=== PATIENT | female | born 1990 ===

== ENCOUNTER 2022-09-18 08:16 | Outpatient (REF) | payer OTHER, SELFPAY ==
--- NOTE | ~2022-09-18 | XR_ITS ---
EXAMINATION: XR STERNUM CLINICAL INFORMATION: Chest pain. COMPARISON: Dedicated chest radiograph from today. TECHNIQUE: 2 views of the sternum were obtained. FINDINGS: There are no fractures. No bone, joint or soft tissue abnormality is demonstrated. XR/XR sternum min 2V IMPRESSION: Unremarkable sternum.
--- NOTE | ~2022-09-18 | XR_ITS ---
EXAMINATION: XR CHEST CLINICAL INFORMATION: Chest pain. COMPARISON: None available. TECHNIQUE: 2 views of the chest were obtained. FINDINGS: The lungs are clear. There are no pleural effusions. The heart and mediastinal structures are unremarkable. Mild thoracolumbar scoliosis. XR/XR chest 2V IMPRESSION: No acute cardiopulmonary process.
== END 2022-09-18 08:17 | disposition home or self-care (01) ==
LOC: HO.HMGCX 08:16
PROVIDERS: Visit Provider Internal Medicine
DX: R07.9 Chest pain, unspecified (principal)
CPT/HCPCS: 71046; 71120

== ENCOUNTER → 2023-01-30 10:17 | Outpatient (BNVA) | payer OTHER, SELFPAY | PROVIDERS: Visit Provider Physician Assistant Surgical ==

== ENCOUNTER 2023-02-27 10:36 | Outpatient (AMB) | payer OTHER, SELFPAY ==
[2023-02-27 10:46] VITALS: BP 131/64; PULSE 90; TEMP 36.5; O2SAT 96; BMI 42.9
--- NOTE | 2023-02-27 10:46 | MHC.OFFVISWM ---
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 [place] [facility] [place] [facility] [place] is to get healthier overall. Was diagnosed with ROLA aobut 5 years ago - did not need CPAP at that time. She reports first being concerned about her weight since childhood, RUMA 5. No therapist presently but would like one. . She has tried multiple methods of weight loss including diets and exercise without permanent results. She lives with parents, sister and her . She works 5 days per week, 9am - 5pm at [employer] in [place]. Just started new job. She wakes at: 7 - 8am, bed at 12 MN - 2 am Breakfast: diet green tea in bottle. skips breakfast 2d/ week. 9-10am - Atkins protein shake 15 grams OR hama nd cheese sandwich or 2 eggs with eastman and 2 slices toast with butter. Lunch: will have scheduled lunch at 12 - 2pm -PB crackers and water Dinner: 6 pm -she shares in cooking. meat and vegetables with pasta or rice sometimes. Diet green tea or water After dinner: rice cakes - mulitple small snacks - more green tea. Other snacks: not during the day Liquids: no soda, rarely fruit juice, diet green tea all day Alcohol intake: once per month of fruity alcohol or glass of wine, tobacco: none, marijuana: none Exercise: Gym 5d/ week - 3d/week - bike with steep incline and good pace for 30 minutes - 120 calories. 1 day of weight lifting UE 20 lbs, 20 reps - 5 sets. Another day - treadmill - speed 4.0, incline 8-9, schultz 80 calories. - low back exercises Last mammogram: too young Last pap smear: up to date control method: not needed, will use OCP's for PCOS colonoscopy age 26 - for diarrhea, benig results snd symptoms resolved. RUMA: 5 ESS: 14 GERD: 17 QOL: 86 [facility] Social History (Updated 01/30/23 @ 10:35 by Swathi Funk CMA) Alcohol intake: never Patient Tobacco Use Status: Never used Tobacco Physical Exam Const General: cooperative, no acute distress and well developed Nutritional Appearance: obese Orientation/consciousness: patient oriented x3 HEENT Head: Yes normal to inspection Neck Neck: Yes normal visual inspection Thyroid: Thyroid normal Resp Effort & Inspection: normal respiratory effort Auscultation: clear to auscultation bilaterally Cardio Rate: regular rate Rhythm: regular rhythm Heart sounds: S1 normal heart sound present, S2 normal heart sound present and no murmurs GI Inspection: No distended and Yes obesity Palpation (GI): Soft to palpation, nontender and no guarding Skin General skin exam: no rashes or lesions noted and other (warm and dry) Wounds: no wounds Hair: normal Neuro General: patient oriented x3 Extrem General: Yes no pedal edema and Yes no calf tenderness Psych Attitude: cooperative Thought process: Normal thought process present Thought content: Normal thought content present Insight: Good insight present (Psych) Judgement: Good judgement present (Psych) Assessment & Plan Assessment & Plan (1) Morbid obesity: Code(s): E66.01 - Morbid (severe) obesity due to excess calories Plan: This is a 32 yo woman with morbid obeisty who will start SWL program to prepare for bariatric surgery. Blood work, h pylori , CXR, ECG, Abd ULS and UGI have been ordered. She is being scheduled for RD and BH initial consultations. She will start SWL classes and watch at 3 classes before her next appt with Anca. 1. Adequate sleep of 7-8 hours per night discussed 2. Healthy meal plan - stop skipping meals and stop all sweetened drinks All meals/MR's need to take 20 minutes to complete 10 am - 30 gram shake 2 pm - 30 gram shake 6 pm- dinner of 6 oz lean protein, 6 oz vegetable, 1 serving fruit 9-10 pm- bar or yogurt Exercise - Cardio 4 d week = treadmill at speed 4.0, incline 3-5 - to burn 350 calories 3 d/ wk - circuit room 20/20/40 lbs The importance of avoiding and breast feeding for at least 18 months after bariatric surgery was discussed in the information session and was reinforced today. Pt will purchase body composition analyzer (recommended list given to patient) and weight herself weekly. Next appt with me in 3 weeks. Text me with any questions and weekly weights. Patient is morbidly obese and is not considered stable at this time.?I spent a total of 60 minutes reviewing/updating records, examining the patient and counseling the patient on weight management as detailed above. (2) Asthma: Code(s): J45.909 - Unspecified asthma, uncomplicated (3) Pre-op evaluation: Code(s): Z01.818 - Encounter for other preprocedural examination Coding Level of Care Code New Pt Level 5 (38430) Diagnoses Morbid obesity E66.01 Asthma J45.909 Pre-op evaluation Z01.818
== END 2023-02-27 12:00 | disposition home or self-care (01) ==
PROVIDERS: Visit Provider Physician Assistant
DX: E66.01 Morbid (severe) obesity due to excess calories (principal); Z68.41 Body mass index [BMI] 40.0-44.9, adult; J45.909 Unspecified asthma, uncomplicated
CPT/HCPCS: 99205

== ENCOUNTER 2023-02-27 10:36 | Outpatient (REF) | payer OTHER, SELFPAY ==
[2023-02-27 13:30] LABS: Estimated Average Glucose 100 mg/dL; Hemoglobin A1c % 5.1 % (<6.0)
[2023-02-27 14:15] LABS: C Reactive Protein 0.98 mg/dL (< or = 0.50); Iron 78 mcg/dL (30-160); Percent Iron Saturation 25 % (15-50); Total Iron Binding Capacity 315 mcg/dL (228-428); Unsaturated Iron Binding 237 ug/dL
[2023-02-27 14:21] LABS: Ferritin 53 ng/mL (10-122); Insulin 13 uU/mL (2-29)
[2023-02-27 14:38] LABS: Folate 15.4 ng/mL (> or = 4.0); Vitamin B12 626 pg/mL (200-900)
[2023-03-01 12:39] LABS: Calcium (PTHI) 9.5 mg/dL (8.6-10.2); PTHI 52 pg/mL (16-77)
[2023-03-03 12:34] LABS: Zinc 81 mcg/dL (60-130)
[2023-03-04 16:23] LABS: Vitamin B1 14 nmol/L (8-30)
[2023-03-05 15:43] LABS: Vitamin A 51 mcg/dL (38-98)
== END 2023-02-27 10:37 | disposition home or self-care (01) ==
LOC: HO.LAB 10:36
PROVIDERS: Visit Provider Physician Assistant
DX: Z01.818 Encounter for other preprocedural examination (principal); G47.30 Sleep apnea, unspecified; Z71.3 Dietary counseling and surveillance; J45.909 Unspecified asthma, uncomplicated; E66.01 Morbid (severe) obesity due to excess calories; Z68.41 Body mass index [BMI] 40.0-44.9, adult
CPT/HCPCS: 36415; 82306; 82607; 82728; 82746; 83036; 83525; 83540; 83970; 84425; 84443; 84590; 84630; 86140

== ENCOUNTER 2023-03-27 11:10 | Outpatient (AMB) | payer OTHER, SELFPAY ==
--- NOTE | 2023-03-27 11:13 | MHC.OFFVISWM ---
Intake VS Expanded 03/27/23 11:21 BP 134/77 Blood Pressure Location Rt brachial Blood Pressure Position Sitting Pulse 68 Pulse Source Pulse Oximeter Temp 98.0 F Temperature Source Temporal Artery Scan Pulse Oximetry 96 Oxygen Delivery Method Room Air Height 5 ft 6 in Weight 250 lb 12.8 oz BMI 40.5 Body Fat % 41.5 Body Fat Mass 104.0 Fat Free Mass 146.6 Visceral Fat Rating 10.0 Body Water % 42.0 Body Water Mass 105.2 Muscle Mass/Score 139.4 Basal Metabolic Rate/Score 2,066 Intake Visit Reasons: (OV) F/U SWL Allergies ibuprofen Adverse Reaction (Severe, Verified 03/27/23 11:21) Anaphylaxis Medication List - Last Reconciled 03/27/23 by Elmira Nation PA-C albuterol sulfate 90 mcg/actuation (Ventolin HFA) 1 inh inhalation QID PRN 30 days cholecalciferol (vitamin D3) 50 mcg PO DAILY fluticasone propionate 110 mcg/actuation (Flovent HFA) 1 puff inhalation BID omeprazole 20 mg PO DAILY HPI HPI Comments History of Present Illness Details This is the patients second appt for SWL. Starting weight was 257.9 lbs on 02/27/23. TBWL is 7 lbs. Meal plan: 10 am - Atkins 30 gram shake 2pm - same shake 6pm - vegetables and meat has fruit after dinner -not hyngry for Exercise plan: only 2 d/ week now on weekend once. Bike and treadmill- hill programs for 350 calories over about 45 minutes. Pre op work up completed as follows: SWL classes - appts - not scheduled yet - has new job and can't take off work for appts yet. RD appts - 04/23 H pylori - not yet Labs - vit d defic CXR - August - normal ECG - today ULS and UGI - 05/12 SS - 04/14 PFSH Social History (Updated 01/30/23 @ 10:35 by Swathi Funk CMA) Alcohol intake: never Patient Tobacco Use Status: Never used Tobacco Physical Exam Vital Signs: Last Vital Signs Temp 98.0 F 03/27/23 11:21 Pulse 68 03/27/23 11:21 BP 134/77 03/27/23 11:21 Pulse Ox 96 03/27/23 11:21 Oxygen Delivery Method Room Air 03/27/23 11:21 BMI result Body Mass Index 40.5 Assessment & Plan Assessment & Plan (1) Morbid obesity: Code(s): E66.01 - Morbid (severe) obesity due to excess calories Plan: Good start with regular meal plan and 7 lb weight loss. No changes other than not having fruit by itself. Exercise - 2 weekend days - treadmill and bike for at least 350 calories burned M, W, F at home LS 2 mile videos. Need to scheudle h pylori now - will stop omeprazole 2 weeks prior. app[facility]. Next appt with [facility] [place] 3 weeks Patient is morbidly obese and is not considered stable at this time. I spent 30 minutes in total with patient reviewing/updating records, examining the patient and counseling the patient on weight management as detailed above. (2) Sleep apnea: Code(s): G47.30 - Sleep apnea, unspecified Plan: on 04/14 - no CPAP machine as of yet (3) Asthma: Code(s): J45.909 - Unspecified asthma, uncomplicated Coding Level of Care Code Est Pt Level 4 (29022) Diagnoses Morbid obesity E66.01 Sleep apnea G47.30 Asthma J45.909
[2023-03-27 11:21] VITALS: BP 134/77; PULSE 68; TEMP 36.7; O2SAT 96; BMI 40.5
== END 2023-03-27 12:03 | disposition home or self-care (01) ==
PROVIDERS: Visit Provider Physician Assistant
DX: E66.01 Morbid (severe) obesity due to excess calories (principal); G47.30 Sleep apnea, unspecified; J45.909 Unspecified asthma, uncomplicated
CPT/HCPCS: 99214

== ENCOUNTER → 2023-03-27 11:10 | Outpatient (REF) | payer OTHER, SELFPAY | LOC: HO.CARD 11:10 | PROVIDERS: PCP Family Medicine; Visit Provider Physician Assistant | DX: G47.30 Sleep apnea, unspecified (principal); E66.01 Morbid (severe) obesity due to excess calories | CPT/HCPCS: 93005 ==

== ENCOUNTER → 2023-04-14 10:42 | Outpatient (REF) | payer OTHER, SELFPAY | LOC: HO.SL 10:42 | PROVIDERS: Visit Provider Physician Assistant | DX: G47.30 Sleep apnea, unspecified (principal); R06.83 Snoring | CPT/HCPCS: 95806 ==

== ENCOUNTER → 2023-04-14 10:49 | Outpatient (BNV) | payer OTHER, SELFPAY | PROVIDERS: Visit Provider Internal Medicine | DX: R06.83 Snoring (principal) | CPT/HCPCS: 95806 ==

== ENCOUNTER → 2023-04-23 08:44 | Outpatient (BNVA) | payer OTHER, SELFPAY | PROVIDERS: Visit Provider Dietitian, Registered | DX: Z71.3 Dietary counseling and surveillance (principal); E66.01 Morbid (severe) obesity due to excess calories; G47.30 Sleep apnea, unspecified | CPT/HCPCS: 97802 ==

== ENCOUNTER 2023-04-27 10:30 | Outpatient (AMB) | payer OTHER, SELFPAY ==
--- NOTE | 2023-04-27 09:47 | A.OFFVIS_ITS ---
Intake VS Expanded 04/27/23 09:48 Height 5 ft 6 in Weight 247 lb 6 oz BMI 39.9 Intake Visit Reasons: VIDEO F/U SWL Allergies ibuprofen Adverse Reaction (Severe, Verified 03/27/23 11:21) Anaphylaxis HPI HPI Comments History of Present Illness Details Starting weight was 257.9 lbs on 02/27/23. TBWL is 10.3 lbs or 4% TBWL. Meal plan: wakes at 8am, bed at 11 pm 10am - Atkins 30 gram shake 2pm - same shake 6pm - meal of vegetables with lean prote in, 12 forks each protein bars on occasion Exercise plan: LS 2 mile videos - not often. Pre op work up completed as follows: SWL classes - 09/27 appts - has new job and can't take off work for appts yet. -- 05/[address] appts - 04/23, needs follow up with completion of classes. H pylori - not yet, 06/01/23 Labs - vit d defic CXR - August 2022 - normal ECG - normal ULS and UGI - 05/12x 2 SS - 04/14, negative for ROLA PFSH Social History (Updated 01/30/23 @ 10:35 by Swathi Funk CMA) Alcohol intake: never Patient Tobacco Use Status: Never used Tobacco Assessment & Plan Assessment & Plan (1) Morbid obesity: Code(s): E66.01 - Morbid (severe) obesity due to excess calories Plan: Pt with 4% weight loss so far, still not gettign enough protein. We discussed moving her schedule a bit - Shakes at 10am/1pm. bar or yogurt or 2 hb eggs at 4pm and dinner at 7 pm Exercise - altrante TBP and LS videso dialy during the week before work and gym on weekends. All upcoming appts reviewed- she is looking forward to appt Next appt with me on 06/01 with rashid myrick, She will continue to send me weekly weights. Patient is still morbidly obese and is not considered stable at this time. I spent 30 minutes in total speaking with the patient via video conference counseling , reviewing records and charting in patients chart. . Telehealth Telehealth Location of provider rendering services: practice address Location of patient: address on file Patient Identification confirmed using: Name, : Yes Telehealth method: video Patient verbally consented to treatment: Yes Patient verbally consented to billing insurance company: Yes Patient informed of any privacy concerns related to visit: Yes Coding Level of Care Code Tele Est Pt Level 4 (28819) Diagnoses Morbid obesity E66.01
[2023-04-27 09:48] VITALS: BMI 39.9
== END 2023-04-27 10:54 | disposition home or self-care (01) ==
LOC: HO.HBS 10:51
PROVIDERS: Visit Provider Physician Assistant
DX: E66.01 Morbid (severe) obesity due to excess calories (principal); Z68.39 Body mass index [BMI] 39.0-39.9, adult
CPT/HCPCS: 99214

== ENCOUNTER → 2023-04-27 10:30 | Outpatient (BNVA) | payer OTHER, SELFPAY | PROVIDERS: Visit Provider Physician Assistant ==

== ENCOUNTER 2023-05-12 08:21 | Outpatient (REF) | payer OTHER, SELFPAY ==
--- NOTE | ~2023-05-12 | US_ITS ---
EXAMINATION: US ABDOMEN LIMITED WITH LIVER ELASTOGRAPHY CLINICAL INFORMATION: Obesity. COMPARISON: None. TECHNIQUE: Real-time imaging of the abdominal viscera. Noninvasive ultrasound liver fibrosis assessment is performed using Gunner ElastPQ point quantification shear wave elastography (pSWE) with a C5-2 MHz transducer. Multiple elastography samples are obtained. FINDINGS: PANCREAS: Normal. The visualized pancreatic head and body are normal in appearance. The remainder of the pancreas is obscured from visualization by the overlying bowel gas. LIVER: The liver demonstrates normal contour and generally increased echogenicity. Within the right hepatic lobe, 1.2 x 1.0 x 0.9 cm and 1.1 x 0.8 x 0.7 cm hypoechoic lesions are seen, without associated color Doppler flow. No intrahepatic biliary duct dilatation. The right lobe measures 18.8 cm in length. The left lobe measures 16.1 cm in length. Portal flow is towards the liver (hepatopetal). Shear wave liver elastography median stiffness is 1.2 kPa (reference: normal median stiffness is 5 kPa or less). IQR/median stiffness to assess sampling precision is 0.11 (reference: good quality data set is IQR/median stiffness of 0.30 or less). GALLBLADDER: Normal. The gallbladder is physiologically distended without evidence of stones, sludge, polyps, wall thickening or pericholecystic fluid. COMMON BILE DUCT: Normal in caliber measuring 0.8 cm in diameter. RIGHT KIDNEY: Normal. No hydronephrosis. No renal calculi or focal parenchymal lesions. The kidney measures 12.8 cm in maximum dimension. FREE FLUID: None. US/US abdomen comp w elastography IMPRESSION: 1. There is generalized increase in hepatic echotexture, consistent with fatty infiltration or hepatocellular disease. Please correlate clinically. No biliary ductal dilatation is seen. 2. Within the right hepatic lobe, 1.2 cm a 1.1 cm hypoechoic lesion is seen, analysis and color Doppler flow. These may represent complex cysts or solid lesions. If clinically indicated, they may be further evaluated with MRI or CT (hepatic mass protocol). 3. There is hepatomegaly. 4. Liver elastography: Measurements are consistent with a high probability of normal liver stiffness. REFERENCE: Society of Radiologists in Ultrasound Liver Stiffness Thresholds (2020): LIVER STIFFNESS THRESHOLDS: *Liver Stiffness equal or less than 5 kPa: High probability of being normal. *Liver Stiffness less than 9 kPa: In the absence of other known clinical signs, rules out compensated advanced chronic liver disease. *Liver Stiffness 9-13 kPa: Suggestive of compensated advanced chronic liver disease but need further test for confirmation. *Liver Stiffness over 13 kPa: Rules in compensated advanced chronic liver disease. *Liver Stiffness over 17 kPa: Suggestive of clinically significant portal hypertension. QUALITY OF DATA SET: *IQR/Median value equal or less than 0.30 implies a quality data set. *IQR/Median value over 0.30 implies a poor quality data set. SIGNIFICANT CHANGE FROM PRIOR EXAM: Significant change if liver stiffness measurement is 10% or greater from prior exam. OTHER CONSIDERATIONS: The stage of liver fibrosis may be overestimated in the setting of acute hepatitis, liver inflammation, elevated liver function tests, hepatic vascular congestion, obstructive cholestasis, non-fasting state, and infiltrative diseases such as amyloidosis and lymphoma. In some patients with NAFLD, the liver stiffness thresholds for compensated advanced chronic liver disease may be lower. In causes other than viral hepatitis and NAFLD, liver stiffness thresholds are not well established.
--- NOTE | ~2023-05-12 | FL_ITS ---
EXAMINATION: XR FLUOROSCOPY UPPER GI WITH AIR CLINICAL INFORMATION: Preop evaluation prior to bariatric surgery COMPARISON: None TECHNIQUE: Fluoroscopic air contrast upper GI examination was performed utilizing standard techniques with thin and thick barium and effervescent granules. Numerous spot images were obtained. FINDINGS: Dual and single contrast images of the esophagus demonstrate normal caliber, contour, and mucosal pattern. No evidence of stricture, mass, or ulcerations identified. Esophageal peristalsis was normal. A small type I hiatal hernia is present. Gastroesophageal reflux is seen up to level of thoracic inlet Dual contrast and single contrast images of the stomach demonstrated normal contour and mucosal pattern without evidence of mass, ulceration, or other abnormality. Contrast freely passed into the gastric antrum and duodenal bulb without delay. Single and air-contrast images of the duodenal bulb demonstrate no abnormality. The duodenal sweep has a normal appearance, course, and mucosal fold appearance. The imaged proximal jejunum has a normal fold pattern and caliber. FLUOROSCOPY TIME: 2 minutes 51 seconds Number of Spot Images: 15 Number of Cine: 8 DOSE AREA PRODUCT: [id number] uGy-m2 (microgray-meter squared) FL/FL upper GI w air IMPRESSION: 1. Small type I hiatal hernia 2. Significant spontaneous gastroesophageal reflux This procedure was performed by Jeffrey Leonard PA-C, and supervised by Dr. Frey
== END 2023-05-12 08:22 | disposition home or self-care (01) ==
LOC: HO.US 08:21
PROVIDERS: Visit Provider Physician Assistant
DX: E66.01 Morbid (severe) obesity due to excess calories (principal); G47.30 Sleep apnea, unspecified
CPT/HCPCS: 74246; 76705; 76981

== ENCOUNTER → 2023-05-12 08:24 | Outpatient (BNV) | payer OTHER, SELFPAY | PROVIDERS: Visit Provider Radiology Diagnostic Radiology | DX: Z01.818 Encounter for other preprocedural examination (principal); E66.01 Morbid (severe) obesity due to excess calories | CPT/HCPCS: 74246 ==

== ENCOUNTER 2023-05-25 08:17 | Outpatient (AMB) | payer OTHER, SELFPAY ==
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
== END 2023-05-25 09:23 | disposition home or self-care (01) ==
PROVIDERS: Visit Provider Counselor Mental Health
DX: F32.2 Major depressive disorder, single episode, severe without psychotic features (principal); F43.10 Post-traumatic stress disorder, unspecified; E66.01 Morbid (severe) obesity due to excess calories
CPT/HCPCS: 90791

== ENCOUNTER 2023-05-25 08:17 | Outpatient (REF) | payer OTHER, SELFPAY ==
[2023-05-25 11:17] LABS: Carcinoembryonic Antigen < 1.73 ng/mL
[2023-05-26 11:08] LABS: Carbohydrate Antigen 19-9 15 U/mL (<34)
[2023-05-26 12:19] LABS: Alpha Fetoprotein 1.9 ng/mL
[2023-05-26 13:23] LABS: CA-125 7 U/mL (<35)
== END 2023-05-25 08:18 | disposition home or self-care (01) ==
LOC: HO.LAB 08:17
PROVIDERS: Absent Provider Physician Assistant; PCP Family Medicine; Visit Provider Counselor Mental Health
DX: E66.01 Morbid (severe) obesity due to excess calories (principal); R16.0 Hepatomegaly, not elsewhere classified
CPT/HCPCS: 36415; 82105; 82378; 86301; 86304

== ENCOUNTER 2023-06-23 14:51 | Outpatient (REF) | payer OTHER, SELFPAY ==
[2023-06-25 16:52] LABS: H Pylori Breath Test Negative (Negative)
== END 2023-06-23 14:52 | disposition home or self-care (01) ==
LOC: HO.LNP 14:51
PROVIDERS: PCP Family Medicine; Visit Provider Physician Assistant
DX: E66.01 Morbid (severe) obesity due to excess calories (principal); G47.30 Sleep apnea, unspecified
CPT/HCPCS: 83013; 99211

== ENCOUNTER 2023-06-24 11:57 | Outpatient (AMB) | payer OTHER, SELFPAY ==
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
== END 2023-06-24 14:20 | disposition home or self-care (01) ==
LOC: HO.HBST 11:57
PROVIDERS: PCP Family Medicine; Visit Provider Counselor Mental Health
DX: F32.2 Major depressive disorder, single episode, severe without psychotic features (principal); F43.10 Post-traumatic stress disorder, unspecified; E66.01 Morbid (severe) obesity due to excess calories
CPT/HCPCS: 90834

== ENCOUNTER → 2023-06-24 11:57 | Outpatient (BNVA) | payer OTHER, SELFPAY | PROVIDERS: PCP Family Medicine; Visit Provider Counselor Mental Health ==

== ENCOUNTER 2023-07-08 08:57 | Outpatient (AMB) | payer OTHER, SELFPAY ==
--- NOTE | 2023-07-08 08:48 | MHC.AMNUTRGE ---
Intake Intake Visit Reasons: VIDEO F/U [facility] Allergies ibuprofen Adverse Reaction (Severe, Verified 03/27/23 11:21) Anaphylaxis HPI Nutrition Presentation Details Starting weight was 257.9 lbs on 02/27/23 Reason for consult elevated BMI Diet Assmnt Details pt reports following the program plan. not hungry. Meal plan: 10 am - Atkins 30 gram shake 2pm - same shake 6pm - vegetables and meat - steak or chicken breast skinless ; likes vegetables drinks and water [facility] online classes: pt thought she had completed them all but she was confused. assisted pt in locating the correct classes Dietary counseling reduction Diagnosis Nutrition problem #1 overweight/obesity As related to (etiology) #1 excess energy intake and physical inactivity As evidenced by (sign/symptom) #1 high BMI Monitoring/Goals Nutrition problem monitoring total energy intake, level of knowledge/skill, total PRO intake, total CHO intake and weight Outcome progress progressing Learning/Education Readiness to learn good Stages of change action Most Recent Diabetes Results: No Data to Display [facility] Social History (Updated 01/30/23 @ 10:35 by Swathi Funk [facility]) Alcohol intake: never Patient Tobacco Use Status: Never used Tobacco Assessment & Plan Assessment & Plan (1) Morbid obesity: Code(s): E66.01 - Morbid (severe) obesity due to excess calories Plan Pt will be seen again once she completes her online classes Telehealth Telehealth Location of provider rendering services: practice address Location of patient: address on file Patient Identification confirmed using: Name, : Yes Telehealth method: voice only Patient verbally consented to treatment: Yes Patient verbally consented to billing insurance company: Yes Patient informed of any privacy concerns related to visit: Yes Minutes spent on Phone/Video with Pt.: 20 Coding Level of Care Code Nutr Indiv Subseq ([id number]) Diagnoses Morbid obesity E66.01 Time Spent (min) 20
== END 2023-07-08 09:38 | disposition home or self-care (01) ==
LOC: HO.HBS 08:57
PROVIDERS: PCP Family Medicine; Visit Provider Dietitian, Registered
DX: E66.01 Morbid (severe) obesity due to excess calories (principal)

== ENCOUNTER → 2023-07-08 08:57 | Outpatient (BNVA) | payer OTHER, SELFPAY | PROVIDERS: PCP Family Medicine; Visit Provider Dietitian, Registered | DX: E66.01 Morbid (severe) obesity due to excess calories (principal); Z71.3 Dietary counseling and surveillance | CPT/HCPCS: 97803 ==

== ENCOUNTER 2023-07-08 12:30 | Outpatient (AMB) | payer OTHER, SELFPAY ==
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
== END 2023-07-08 13:15 | disposition home or self-care (01) ==
LOC: HO.HBST 07-09 08:51
PROVIDERS: PCP Family Medicine; Visit Provider Counselor Mental Health
DX: F32.2 Major depressive disorder, single episode, severe without psychotic features (principal); F43.10 Post-traumatic stress disorder, unspecified; E66.01 Morbid (severe) obesity due to excess calories
CPT/HCPCS: 90832

== ENCOUNTER 2023-07-13 09:30 | Outpatient (AMB) | payer OTHER, SELFPAY ==
--- NOTE | 2023-07-13 09:30 | A.OFFVIS_ITS ---
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 Pt is presently hospitalized at [facility] for cellulitis left leg. No DVT. Will be discharged home today on double antibiotics. Meal plan 2 shakes, 1 yogurt and 1 meal - 12 forks each Pre op work up completed as follows: SWL classes - 09/27 appts - 05/25 initial appt, having followups with Za 08/05 RD appts - still not completed classes, follow up 08/05 H pylori - negative Labs - vit d defic CXR - August 2022 - normal ECG - normal ULS - steatosis and hepatomegaly. 18.8/ 16.1 cms. 1.2 x 1.1 hepatic lesion (cyst vs solid) Discussed with Dr Senior and CEA, AFP, Ca 125, CA 19-9 done to rule out malignancy, all WNL. UGI - type 1 HH, significant reflux SS - 04/14, negative for ROLA PFSH Medical History (Updated 07/13/23 @ 09:56 by Elmira Nation PA-C) Sleep apnea Social History (Updated 01/30/23 @ 10:35 by Swathi Funk CMA) Alcohol intake: never Patient Tobacco Use Status: Never used Tobacco Assessment & Plan Assessment & Plan (1) Morbid obesity: Code(s): E66.01 - Morbid (severe) obesity due to excess calories Plan: SW follow up presently hospitalized with leg cellulitis. I discussed with her that she may need to take a break from the program ofr awhile while she is taking care of personal issues. She does not want to do this. Will continue meal plan and will restart exercise when she is able. For now will do Sit to be Fit 20-30 minutes per day. Has follow ups with Za and Anca (will finish classes this week). follow up with me in 3 weeks. Patient is still morbidly obese and is not considered stable at this time. I spent 20 minutes in total speaking with the patient via video conference counseling , reviewing records and charting in patients chart. . Telehealth Telehealth Location of provider rendering services: practice address Location of patient: address on file Patient Identification confirmed using: Name, : Yes Telehealth method: video Patient verbally consented to treatment: Yes Patient verbally consented to billing insurance company: Yes Patient informed of any privacy concerns related to visit: Yes Coding Level of Care Code Tele Est Pt Level 3 (62439) Diagnoses Morbid obesity E66.01
[2023-07-13 09:38] VITALS: BMI 39.3
== END 2023-07-13 09:56 | disposition home or self-care (01) ==
LOC: HO.HBS 09:54
PROVIDERS: PCP Family Medicine; Visit Provider Physician Assistant
DX: E66.01 Morbid (severe) obesity due to excess calories (principal); Z68.39 Body mass index [BMI] 39.0-39.9, adult
CPT/HCPCS: 99213

== ENCOUNTER → 2023-07-13 09:30 | Outpatient (BNVA) | payer OTHER, SELFPAY | PROVIDERS: PCP Family Medicine; Visit Provider Physician Assistant ==

== ENCOUNTER 2023-08-05 15:43 | Outpatient (AMB) | payer OTHER, SELFPAY ==
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
== END 2023-08-05 15:55 | disposition home or self-care (01) ==
LOC: HO.HBST 15:44
PROVIDERS: PCP Family Medicine; Visit Provider Counselor Mental Health
DX: F32.2 Major depressive disorder, single episode, severe without psychotic features (principal); F43.10 Post-traumatic stress disorder, unspecified; E66.01 Morbid (severe) obesity due to excess calories
CPT/HCPCS: 90834

== ENCOUNTER → 2023-08-05 15:43 | Outpatient (BNVA) | payer OTHER, SELFPAY | PROVIDERS: PCP Family Medicine; Visit Provider Counselor Mental Health ==

== ENCOUNTER 2023-08-12 15:02 | Outpatient (AMB) | payer OTHER, SELFPAY ==
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
== END 2023-08-13 10:58 | disposition home or self-care (01) ==
LOC: HO.HBST 15:02
PROVIDERS: PCP Family Medicine; Visit Provider Counselor Mental Health
DX: F32.2 Major depressive disorder, single episode, severe without psychotic features (principal); F43.10 Post-traumatic stress disorder, unspecified; E66.01 Morbid (severe) obesity due to excess calories
CPT/HCPCS: 90834

== ENCOUNTER → 2023-08-12 15:02 | Outpatient (BNVA) | payer OTHER, SELFPAY | PROVIDERS: PCP Family Medicine; Visit Provider Counselor Mental Health ==

== ENCOUNTER 2023-08-14 10:52 | Outpatient (AMB) | payer OTHER, SELFPAY ==
--- NOTE | 2023-08-14 09:29 | A.OFFVIS_ITS ---
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 Meal plan: 10 am - Atkins 30 gram shake 1pm - 25 gram protein yogurt 4pm - another shake 7pm - 12 forks lean protein 12 forks veg etables, sometimes has fruit Exercise - gym 3d this week - working on a regular plan now since her hospitalization. Treadmill - 350 calories, speed 4.0, incline 7-8. weight machines and rowing. 4th day LS 2 mile videos. Pre op work up completed as follows: SWL classes - 01/27 appts - 05/25 initial appt, having followups with Za 08/05, cleared and will continue appts RD appts - still not completed classes, now cleared H pylori - negative Labs - vit d defic CXR - August 2022 - normal ECG - normal ULS - steatosis and hepatomegaly. 18.8/ 16.1 cms. 1.2 x 1.1 hepatic lesion (cyst vs solid) Discussed with Dr Senior and CEA, AFP, Ca 125, CA 19-9 done to rule out malignancy, all WNL. UGI - type 1 HH, significant reflux SS - 04/14, negative for ROLA PFSH Medical History (Updated 07/13/23 @ 09:56 by Elmira Nation PA-C) Sleep apnea Social History (Updated 01/30/23 @ 10:35 by Swathi Funk CMA) Alcohol intake: never Patient Tobacco Use Status: Never used Tobacco Assessment & Plan Assessment & Plan (1) Morbid obesity: Code(s): E66.01 - Morbid (severe) obesity due to excess calories Plan: Pre op work up complete. W Meal plan - will switch to powdered protein with water or UAM. Will now try bars again, didn't feel satisfied by them previously. Has intke for therapist on September 07. Exercise - need at least 4 d/ week. Try gym 4 d/wk - speed 4.0, incline 3 - 8 (3 mintues) or [facility] program - >[address] - 3d/ week. Next appt with me in 3 weeks, then Dr Thakkar Patient is still obese and is not considered stable at this time. I spent 27 minutes in total speaking with the patient via video conference counseling , reviewing records and charting in patients chart. . (2) Major depressive disorder, severe: Code(s): F32.2 - Major depressive disorder, single episode, severe without psychotic features Plan: follow up with Za (cleared for surgery) and her own therapist Telehealth Telehealth Location of provider rendering services: practice address Location of patient: address on file Patient Identification confirmed using: Name, : Yes Telehealth method: voice only Patient verbally consented to treatment: Yes Patient verbally consented to billing insurance company: Yes Patient informed of any privacy concerns related to visit: Yes Coding Level of Care Code Tele Est Pt Level 4 (74398) Diagnoses Morbid obesity E66.01 Major depressive disorder, severe F32.2
[2023-08-14 10:35] VITALS: BMI 38.9
== END 2023-08-14 10:53 | disposition home or self-care (01) ==
LOC: HO.HBS 10:52
PROVIDERS: PCP Family Medicine; Visit Provider Physician Assistant
DX: E66.01 Morbid (severe) obesity due to excess calories (principal); Z68.38 Body mass index [BMI] 38.0-38.9, adult; F32.2 Major depressive disorder, single episode, severe without psychotic features
CPT/HCPCS: 99214

== ENCOUNTER → 2023-08-14 10:52 | Outpatient (BNVA) | payer OTHER, SELFPAY | PROVIDERS: PCP Family Medicine; Visit Provider Physician Assistant | DX: E66.01 Morbid (severe) obesity due to excess calories (principal) ==

== ENCOUNTER 2023-09-01 13:33 | Outpatient (AMB) | payer OTHER, SELFPAY ==
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
== END 2023-09-01 14:00 | disposition home or self-care (01) ==
LOC: HO.HBST 13:33
PROVIDERS: PCP Family Medicine; Visit Provider Counselor Mental Health
DX: F32.2 Major depressive disorder, single episode, severe without psychotic features (principal); F43.10 Post-traumatic stress disorder, unspecified; E66.01 Morbid (severe) obesity due to excess calories
CPT/HCPCS: 99499

== ENCOUNTER → 2023-09-01 13:33 | Outpatient (BNVA) | payer OTHER, SELFPAY | PROVIDERS: PCP Family Medicine; Visit Provider Counselor Mental Health ==

== ENCOUNTER 2023-09-09 16:29 | Outpatient (AMB) | payer OTHER, SELFPAY ==
--- NOTE | 2023-09-09 16:49 | MHC.OFFVISWM ---
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 She has gained 1 lb since last appt. Meal plan: 10 am - Atk ins 30 gram shakes 1pm - 25 gram pro tein yogurt 4pm - another shake 7pm - 12 forks lean pr otein 12 forks veg etables, sometimes has fruit Exerc ise - gym 5 d this week. Treadmill - 350 calories, spe ed 2.8, hill octavia ng, level 10, over 35 - 40 minutes W eight machines and rowing. 3d UE - 30 lbs, abd - 35 lbs -- 5 sets of 20, Pre op work up completed as fo llows: SW classes - 01/27 appts - 05/25 initial rebel t, having followup s with Za 08/05, cleared and will continue appts RD appts - still not completed classes , now cleared H p ylori - negative L abs - vit d defic CXR - August 2022 - normal ECG - norm al ULS - steatosis and hepatomegaly. 18.8/ 16.1 cms. 1 .2 x 1.1 hepatic l esion (cyst vs leslie id) Discussed with Dr Senior and CEA, AFP , Ca 125, CA 19-9 done to rule out m alignancy, all WNL . UGI - type 1 HH , significant refl ux SS - 04/14, neg ative for ROLA PFSH Medical History (Updated 07/13/23 @ 09:56 by Elmira Nation PA-C) Sleep apnea Social History (Updated 01/30/23 @ 10:35 by Swathi Funk CMA) Alcohol intake: never Patient Tobacco Use Status: Never used Tobacco Assessment & Plan Assessment & Plan (1) Morbid obesity: Code(s): E66.01 - Morbid (severe) obesity due to excess calories Plan: Pre op work up done. Needs to lose another 10 lbs. Meal plan changes - will make the changes we discussed previously. Will now start protein powder mixed with 8 oz of water or UAM. Bars instead of yogurt Exercise - goal is 2,000 mark/wk. treadmill - 5d/week - 450 mark/week. speed 2.8, incline 3 - 10 (3 minutes), 10 mark/min. ST - 4 sets of 15 . Need to change what she has been doing. Next appt with Dr Ariane River was made aware. Patient is still morbidly obese and is not considered stable at this time. I spent 30 minutes in total speaking with the patient via video conference counseling , reviewing records and charting in patients chart. . Coding Level of Care Code Tele Est Pt Level 4 (51725) Diagnoses Morbid obesity E66.01
[2023-09-09 16:50] VITALS: BMI 39.1
== END 2023-09-09 17:16 | disposition home or self-care (01) ==
LOC: HO.HBS 16:29
PROVIDERS: PCP Family Medicine; Visit Provider Physician Assistant
DX: E66.01 Morbid (severe) obesity due to excess calories (principal); Z68.39 Body mass index [BMI] 39.0-39.9, adult
CPT/HCPCS: 99214

== ENCOUNTER → 2023-09-09 16:29 | Outpatient (BNVA) | payer OTHER, SELFPAY | PROVIDERS: PCP Family Medicine; Visit Provider Physician Assistant ==

== ENCOUNTER 2023-10-26 07:59 | Outpatient (AMB) | payer OTHER, SELFPAY ==
--- NOTE | 2023-10-26 13:04 | A.OFFVIS_ITS ---
VS Expanded 10/26/23 13:37 Height 5 ft 6 in Weight 240 lb BMI 38.7 Intake Visit Reasons: TV Consult/Transfer [place] Allergies ibuprofen Adverse Reaction (Severe, Verified 10/26/23 13:04) Anaphylaxis Medication List - Last Reconciled 10/26/23 by Vimal Nunez MD albuterol sulfate 90 mcg/actuation (Ventolin HFA) 1 inh inhalation QID PRN 30 days cholecalciferol (vitamin D3) 50 mcg PO DAILY fluticasone propionate 110 mcg/actuation (Flovent HFA) 1 puff inhalation BID omeprazole 20 mg PO DAILY HPI HPI TV Consult/Transfer [place]: Details: Start time: 1pm, End time: 1.46pm ?I spent 41 minutes speaking with the patient on the phone plus an additional 5 minutes reviewing and updating records for a total of 46 minutes HPI Comments Details: Overall weight loss: 19lbs, or 7.34% TBWL Is doing 2 premade Premier protein shakes, one Fit Crunch protein bar and one meal (6 oz protein and 6oz salad or vegetables) Exercise: used to go ti gym. Stopped due to knee problem [facility] Medical History (Updated 10/26/23 @ 13:07 by Vimal Nunez MD) GERD (gastroesophageal reflux disease) Knee pain Anxiety Depression Sleep apnea Social History (Updated 01/30/23 @ 10:35 by Swathi Funk CMA) Alcohol intake: never Patient Tobacco Use Status: Never used Tobacco Telehealth Telehealth Telehealth Platform: Telephone Location of provider rendering services: practice address Location of patient: address on file Patient Identification confirmed using: Name, : Yes Telehealth method: voice only Patient verbally consented to treatment: Yes Patient verbally consented to billing insurance company: Yes Patient informed of any privacy concerns related to visit: Yes Minutes spent on Phone/Video with Pt.: 46 Assessment & Plan Assessment & Plan (1) Morbid obesity: Code(s): E66.01 - Morbid (severe) obesity due to excess calories Category: Medical Plan: 1. Plan for lap sleeve gastrectomy including upper GI endoscopy. All tests has been completed and reviewed and the patient is cleared for the surgery. ?If diaphragmatic or ventral hernias are present at time of surgery, these will be repaired laparoscopically as well. Risks and complications were discussed in detail including possible conversion to an open procedure, anastomotic leak, bleeding requiring transfusion, small bowel obstruction, , DVT and pulmonary embolism, cardiac, or pulmonary complications, as terminal gauger complications such as anastomotic ulcer, insufficient weight loss and vitamin deficiencies. I emphasized the importance of close follow-up, adherence to instructions and good communication. So far she has proven to be an excellent communicator and very compliant with all our directions accomplishing a great weight loss. I believe that she is an excellent candidate and she is ready. 2. The patient participated in a structured preoperative lifestyle intervention program supervised by a physician the 7 months preceding the surgical procedure. The lifestyle intervention included a structured nutritional plan with a specific daily protein intake goal, an exercise plan with a 2000 calorie burn weekly goal, weekly behavior modification guidance and completion of eight 1- hour online nutritional classes and passing successfully the corresponding quizzes. Adherence to preoperative care plan was demonstrated by completing an extensive preoperative work-up. Program participation was demonstrated by co mpleting 11 visits with our medical team and by sharing weekly weight measurements weekly for 7 consecutive months via an approved body composition scale. Compliance to the lifestyle intervention was demonstrated by achieving a 19lbs weight-loss or 7.34% total body weight loss (TBWL). No medications were used to achieve this weight loss. In our published experience an over 7% preoperative TBWL, achieved by meeting the diet and exercise goals of our program improves surgical outcomes, reduces the potential for surgical complications, and predicts a statistically significant higher weight loss up to 6 years postoperatively. 3. Please change nutritional plan to 2 Premier premade shakes (mix 4 oz of the Premier with 4oz low fat unsweetended almond milk) at 9am-11am and 12pm-2pm, one Fit Crunch protein bar at 3pm-5pm, dinner at 6pm (10 forks of protein and 10 forks of salad or vegetables), one more Fit Crunch protein bar at 8pm-10pm and if huungry another HALF protien bar at 11pm-12am. So you do 2 protein shakes, 2.5 protein bars and one meal per day. Meal to include lean meat (beef, fish, pork, turkey, chicken), or [place]err[place] yogurt, or egg whites, or beans with a salad with olive oil and fruits (berries, pears, apples, kiwi). Avoid salt, breads, potatoes, rice, pasta, desserts. 3. Each shake would be drunk slowly, like coffee in a period of 2 hours. 4. Cut each bar in 4 pieces and eat each piece in 30min ?to make each bar last 2 hours. 5. I emphasized the importance of measuring accurately the food portion and measure it when serving the food in plate 6. The meal portions include 10 full-size forks of meat and 10 full-size forks of salad. You always eat the meat portion but you can replace up to 5 forks for salad/vegetables with rice, potatoes or pasta, or a fruit ?if you like. The less you do it the better weight loss will be. 7. One full-size fork is what it can be scooped on the fork without falling aside and not what can be bit with the fork. Use regular forks like those you find in a typical restaurant. 8.? Please send me weight measurements as soon as possible and then once a week. Always include your diet and exercise plan. 9. The best choice would be to purchase a stationary bike, or a rowing machine at home that can track calories. Let me know if you do so I can give you an exercise plan. 10.?It is important of avoiding and for at least 18 months postoperatively and has been discussed at the infosession.
[2023-10-26 13:37] VITALS: BMI 38.7
== END 2023-10-26 13:47 | disposition home or self-care (01) ==
LOC: HO.HBS 07:59
PROVIDERS: PCP Family Medicine; Visit Provider Surgery
DX: E66.01 Morbid (severe) obesity due to excess calories (principal); Z68.38 Body mass index [BMI] 38.0-38.9, adult
CPT/HCPCS: 99214

== ENCOUNTER → 2023-10-26 07:59 | Outpatient (BNVA) | payer OTHER, SELFPAY | PROVIDERS: PCP Family Medicine; Visit Provider Surgery ==

== ENCOUNTER 2023-11-27 08:05 | Outpatient (AMB) | payer OTHER, SELFPAY ==
[2023-11-25 21:24] VITALS: BMI 39.1
--- NOTE | 2023-11-25 21:24 | A.OFFVIS_ITS ---
VS Expanded 11/25/23 21:24 Height 5 ft 6 in Weight 242 lb BMI 39.1 Body Fat % 51.7 Body Fat Mass 125.1 Fat Free Mass 117 Visceral Fat Rating 21 Intake Visit Reasons: TV Pre Op LSG 12/10/23 Allergies ibuprofen Adverse Reaction (Severe, Verified 11/25/23 21:27) Anaphylaxis Medication List - Last Reconciled 11/25/23 by Vimal Nunez MD albuterol sulfate 90 mcg/actuation (Ventolin HFA) 1 inh inhalation QID PRN 30 days cholecalciferol (vitamin D3) 50 mcg PO DAILY fluticasone propionate 110 mcg/actuation (Flovent HFA) 1 puff inhalation BID omeprazole 20 mg PO DAILY ondansetron 4 mg PO Q12H pantoprazole 40 mg PO DAILY polyethylene glycol 3350 17 grams PO DAILY sucralfate 10 mL PO BID HPI HPI TV Pre Op LSG 12/10/23: Details: Start time: 2pm, End time: 2.30pm ?I spent 25 minutes speaking with the patient on the phone plus an additional 5 minutes reviewing and updating records for a total of 30 minutes HPI Comments Details: Overall weight loss: 17lbs, or 6.56% TBWL Ntritional plan to 2 Premier premade shakes (mix 4 oz of the Premier with 4oz low fat unsweetended almond milk) at 9am-11am and 12pm-2pm, one Fit Crunch protein bar at 3pm-5pm, dinner at 6pm (10 forks of protein and 10 forks of salad or vegetables), one more Fit Crunch protein bar at 8pm-10pm and if huungry another HALF protien bar at 11pm-12am. Exercise: bike [facility] Medical History (Updated 10/26/23 @ 13:07 by Vimal Nunez MD) GERD (gastroesophageal reflux disease) Knee pain Anxiety Depression Sleep apnea Social History (Updated 01/30/23 @ 10:35 by Swathi Funk CMA) Alcohol intake: never Patient Tobacco Use Status: Never used Tobacco Physical Exam Vital Signs: BMI result Body Mass Index 39.1 Telehealth Telehealth Telehealth Platform: Telephone Location of provider rendering services: practice address Location of patient: address on file Patient Identification confirmed using: Name, : Yes Telehealth method: voice only Patient verbally consented to treatment: Yes Patient verbally consented to billing insurance company: Yes Patient informed of any privacy concerns related to visit: Yes Minutes spent on Phone/Video with Pt.: 30 Assessment & Plan Assessment & Plan (1) Morbid obesity: Code(s): E66.01 - Morbid (severe) obesity due to excess calories Category: Medical Plan: 1. Plan for lap sleeve gastrectomy including upper GI endoscopy. All tests has been completed and reviewed and the patient is cleared for the surgery. ?If diaphragmatic or ventral hernias are present at time of surgery, these will be repaired laparoscopically as well. Risks and complications were discussed in detail including possible conversion to an open procedure, anastomotic leak, bleeding requiring transfusion, small bowel obstruction, , DVT and pulmona ry embolism, cardiac, or pulmonary complications, as terminal computer operator complications such as anastomotic ulcer, insufficient weight loss and vitamin deficiencies. I emphasized the importance of close follow-up, adherence to instructions and good communication. So far she has proven to be an excellent communicator and very compliant with all our directions accomplishing a great weight loss. I believe that she is an excellent candidate and she is ready. 2. Preop prescriptions were provided and explained the purpose of each one. Need to be purchased preop. Start Pantoprazole now as you get it from the pharmacy, 1 pill per day. Sucralfate and Zofran are for after surgery as needed. 3. Bowel prep: please do 7 packets ?of Miralax mixing each one with a an 8oz glass of water, crystal light, gatorade zero, or propel ?on 12/08/23 and the same amount on 12/09/23. The Miralax you begin with one packet at a time in 8oz water or crystal light, gatorade zero, or propel ?as early in the day as you can and you do them back to back until you finish them. Continue the protein shakes during? the bowel prep. 4. Needs to purchase 1oz medicine cups . 5. Needs to purchase Children's liquid Tylenol for postop pain control. 6. Avoid aspirin, motrin, Advil, Aleve, Ibuprofen, Naproxyn. Tylenol is OK. 7. She needs to purchase the Celebrate 4:1 protein shakes from the hospital's gift shop. 8. Will do basic preop blood work-up any day between Thursday11/30/23 and Thursday12/04/23 fasting for 12 hours and is scheduled to see the Anesthesiologist prior to the day of surgery. 9. Importance of adherence to postop folllow-up and recommendations was underscored and she understands that. 10. Stop food and bars as of Thursday11/27/23 and continue with 3 Premier protein shakes (4oz of Premier shake with 4oz almond milk, NOT THE WHOLE BOTTLE) at 8am- 10am, 11am-1pm, and 2pm-4pm and TWO more Premier protein shakes (8oz of Premier shake each, NOT THE WHOLE BOTTLE) at 5pm-7pm and 8pm-10pm 11. No soups, broths or V8 12. The patient's?medical?history has been reviewed and they are considered low risk for post op DVT and therefore DVT prophylaxis is not considered necessary. Travel after surgery was reviewed. The patient has not disclosed any travel plans during the first 30 days after surgery and they have been advised that within the first 30 days after surgery any bus, plane, train or car travel over 2 hours in duration is contraindicated due to the possibility of developing blood clots from immobility. Any travel, needs to include periods of ambulation of 10 minutes in duration every 2 hours.? Patient was instructed to discuss any plans for travel during this period with their bariatric surgeon.? 13. Please take at the day of surgery the following medications: NONE 14. Stop any control pills and don't use them for one month after surgery 15. Absolutely no smoking or vaping, or marijuana until the surgery and for at least the first 4 weeks. Only nicotine patches are allowed. 16. Send me weight measurements on 11/26/23, 12/03/23 and then 12/10/23 on the day of surgery before you go to the hospital. 17. Avoid any steroids by mouth for any reason. Let me know if someone prescribes them to you 18. These instructions supersede anything else you read in the handbook, anything you watched in videos or classes or you were told by any other provider. If there is any conflict, you follow the above instructions and nothing else. Orders: Orders Prothrombin Time INR 11/25/23 E66.01 - Morbid (severe) obesity due to excess calories Type and Screen 11/25/23 E6. - Morbid (severe) obesity due to excess calories Partial Thromboplastin Time 11/25/23 E66. - Morbid (severe) obesity due to excess calories Lipid Panel 11/25/23 E6. - Morbid (severe) obesity due to excess calories Hemoglobin A1c 11/25/23 E66. - Morbid (severe) obesity due to excess calories Comprehensive Met. Panel 11/25/23 E611.20 - Morbid (severe) obesity due to excess calories Complete Blood Count Auto Diff 11/25/23 E6. - Morbid (severe) obesity due to excess calories Insulin 11/25/23 E66. - Morbid (severe) obesity due to excess calories TSH reflex Free T4 11/25/23 E611.20 - Morbid (severe) obesity due to excess c alories C Reactive Protein 11/25/23 E66. - Morbid (severe) obesity due to excess calories Medications: New pantoprazole 40 mg PO DAILY 90 tabs 0RF K21.9 - Gastro-esophageal reflux disease without esophagitis sucralfate 10 mL PO BID 600 mL 2RF K21.9 - Gastro-esophageal reflux disease without esophagitis ondansetron Only take one every 12 hours as needed if you have nausea 4 mg PO Q12H 20 tabs 0RF nausea and vomiting R11.0 - Nausea polyethylene glycol 3350 Mix each measuring cup with 8oz of water, Crystal light, or Gatorade zero, or Propel and do 7 measuring cups on 12/08/23 and another 7 measuring cups on 12/09/23 17 grams PO DAILY 238 grams 0RF Z01.818 - Encounter for other preprocedural examination
== END 2023-11-27 21:39 | disposition home or self-care (01) ==
LOC: HO.HBS 08:05
PROVIDERS: PCP Family Medicine; Visit Provider Surgery
DX: E66.01 Morbid (severe) obesity due to excess calories (principal); Z68.39 Body mass index [BMI] 39.0-39.9, adult
CPT/HCPCS: 99499

== ENCOUNTER → 2023-11-27 08:05 | Outpatient (BNVA) | payer OTHER, SELFPAY | PROVIDERS: PCP Family Medicine; Visit Provider Surgery | DX: E66.01 Morbid (severe) obesity due to excess calories (principal); K21.9 Gastro-esophageal reflux disease without esophagitis; R11.0 Nausea; Z01.818 Encounter for other preprocedural examination ==

== ENCOUNTER → 2023-11-30 07:02 | Outpatient (BNVA) | payer OTHER, SELFPAY | PROVIDERS: PCP Family Medicine; Visit Provider Surgery ==

== ENCOUNTER 2023-12-10 11:21 | Inpatient (IN) | payer OTHER, SELFPAY ==
[2023-11-30 07:39] LABS: MANUAL DIFF FLAG NO
[2023-11-30 08:43] LABS: Basophils Percent Auto 0.5 % (0-2); Eosinophils Absolute Auto 0.2 X10*3/uL (0.0-0.4); Eosinophils Percent Auto 2.1 % (0-4); Hematocrit 40.4 % (37.0-47.0); Hemoglobin 13.3 g/dl (12.0-16.0); Imm Gran Abs Auto 0.02 X10*3/uL (0.00-0.03); Imm Gran Pct Auto 0.3 % (0.0-0.4); Lymphocytes Absolute Auto 2.6 X10*3/uL (1.2-4.9); Lymphocytes Percent Auto 33.5 % (20-40); Mean Corpuscular HGB Conc 32.9 g/dl (31.0-35.0); Mean Corpuscular Hemoglobin 29.9 pg (27.0-33.0); Mean Corpuscular Volume 90.8 fL (80.0-98.0); Mean Platelet Volume 10.3 fL (9.4-12.3); Monocytes Absolute Auto 0.6 X10*3/uL (0.1-1.2); Monocytes Percent Auto 7.3 % (2-11); Neutrophils Absolute Auto 4.4 x10*3/uL (2.0-8.3); Neutrophils Percent Auto 56.3 % (45-73); Platelet Count 213 X10*3/uL (160-400); Red Blood Count 4.45 X10*6/uL (4.20-5.50); Red Cell Distribution Width 12.2 % (11.0-16.0); White Blood Count 7.7 X10*3/uL (4.8-10.8)
[2023-11-30 08:46] LABS: INTERNATIONAL NORM RATIO 1.1 (0.9-1.1); Prothrombin Time 13.1 SEC (11.1-13.3)
[2023-11-30 08:49] LABS: Partial Thromboplastin Time 34.4 SEC (26.0-36.8)
[2023-11-30 08:51] LABS: Estimated Average Glucose 105 mg/dL; Hemoglobin A1c % 5.3 % (<6.0)
[2023-11-30 09:34] LABS: Alanine Aminotransferase 21 U/L (0-31); Albumin Level 4.3 g/dL (3.5-5.0); Alkaline Phosphatase 43 U/L (39-117); Anion Gap 16 (12-20); Aspartate Amino Transferase 15 U/L (5-31); Bilirubin Total 0.8 mg/dL (0.0-1.0); Blood Urea Nitrogen 17 mg/dL (9-16); C Reactive Protein 2.33 mg/dL (< or = 0.50); Calcium 10.1 mg/dL (8.4-10.2); Carbon Dioxide 27 mmol/L (22-29); Chloride 104 mmol/L (96-108); Cholesterol 183 mg/dL (<200); Estimated Glomerular Filt Rate > 60; Glucose Random 92 mg/dL (60-115); HDL Cholesterol 37 mg/dL (>40); LDL Cholesterol Calculated 126 mg/dL (<100); Potassium 4.1 mmol/L (3.3-5.1); Sodium 143 mmol/L (135-145); Total Protein 7.4 g/dL (6.5-8.0); Triglycerides 103 mg/dL (<150)
[2023-11-30 09:39] LABS: TSH reflex Free T4 0.76 uIU/mL (0.32-4.0)
[2023-11-30 10:42] LABS: Insulin 10 uU/mL (2-29)
[2023-12-01 08:26] VITALS: BMI 39.4
--- NOTE | 2023-12-09 08:36 | HO.ANESPROP2 ---
Documented by User: Toshia Couch NP 12/09/23 08:56 HPI - Anesthesia Eval Consult details Narrative: 33yo F for Gastrectomy Sleeve,EGD,possible diaphragmatic hernia,possible ventral hernia,possible open PMFSH Active Problems Active Problems: All Active Problems Post traumatic stress disorder (Acute) Major depressive disorder, severe (Acute) Liver mass (Acute) Pre-op evaluation (Acute) Asthma (Acute) Morbid obesity (Acute) Chest pain (Acute) GERD (gastroesophageal reflux disease) (Acute) Knee pain (Acute) Anxiety (Acute) Depression (Acute) Past Medical History Medical History Family history of anesthesia complication Slow to wake up after anesthesia Seasonal allergies Asthma GERD (gastroesophageal reflux disease) Knee pain Anxiety Depression Sleep apnea Family History Family History Paternal Grandfather Anesthesia complication Surgical History Surgical History Hx of colonoscopy History of wisdom tooth extraction History of sinus surgery Social History Social History Household Members: Family Housing: House Are you a primary direct care counselor to a significant other at home: No Do you presently have visiting nurse or other home services: No Alcohol intake: never Comment: aware of trip hazard Patient Tobacco Use Status: Never used Tobacco Use of substances other than those prescribed or required for medical reasons: No Have you been hit, kicked, punched, or otherwise hurt by someone within the past year? If so, by whom?: No Are you DNR?: No Advance Directives: No Advance Directives Information Provided: Yes Advance Directives on File: No Recently lost weight without trying: No Nutrition Risks: No Nutritional Risk Patient : No FDLMP: 11/25/2023 : No Poor oral hygiene: No Current occupational status: employed Meds Allergies Allergy/AdvReac Type Severity Reaction Status Date / Time ibuprofen AdvReac Severe dehydrated, Verified 12/10/23 07:45 delirious, went to ED Home Medications ?Medication ?Instructions ?Recorded ?Confirmed ?Last Taken ?Type omeprazole 20 mg capsule,delayed 20 mg PO DAILY 01/30/23 12/01/23 Unknown History release cetirizine 10 mg tablet (Zyrtec) 10 mg PO DAILY PRN Allergy Symptoms 12/01/23 12/01/23 Unknown History Exam Height,Weight and Vital Signs: Height 5 ft 5 in Weight 107.501 kg Pertinent Lab Results Pertinent Lab Results: Laboratory Tests 11/30/23 11/30/23 07:29 07:37 WBC 7.7 RBC 4.45 Hgb 13.3 Hct 40.4 MCV 90.8 MCH 29.9 MCHC 32.9 RDW 12.2 Plt Count 213 MPV 10.3 Immature Gran % (Auto) 0.3 Neut % (Auto) 56.3 Lymph % (Auto) 33.5 [place] % (Auto) 7.3 Eos % (Auto) 2.1 Baso % (Auto) 0.5 Lymph # (Auto) 2.6 [place] # (Auto) 0.6 Eos # (Auto) 0.2 Baso # (Auto) 0.0 Abs Immat Gran (auto) 0.02 Absolute Neuts (auto) 4.4 Absolute Nucleated RBC 0.000 Nucleated RBC % (auto) 0.0 PT 13.1 INR 1.1 APTT 34.4 Sodium 143 Potassium 4.1 Chloride 104 Carbon Dioxide 27 Anion Gap 16 BUN 17 H Creatinine 0.80 Estim Creat Clear Calc TNP Estimated GFR > 60 Random Glucose 92 Estimat Average Glucose 105 Hemoglobin A1c % 5.3 Insulin Level 10 Calcium 10.1 Total Bilirubin 0.8 AST 15 ALT 21 Alkaline Phosphatase 43 C-Reactive Protein 2.33 H Total Protein 7.4 Albumin 4.3 Triglycerides 103 Cholesterol 183 LDL Cholesterol, Calc 126 H HDL Cholesterol 37 L TSH 0.76 Blood Type O Positive Antibody Screen NEGATIVE Narrative Narrative: EKG 2022 Vent. Rate : 062 BPM Atrial Rate : 062 BPM P-R Int : 140 ms QRS Dur : 096 ms QT Int : 422 ms P-R-T Axes : 037 -07 028 degrees QTc Int : 428 ms Sinus rhythm with Premature atrial complexes Otherwise normal ECG No previous ECGs available Assessment and Plan Assessment Anesthesia Assessment: Chart Reviewed Documented by User: Autumn Alvarenga MD 12/10/23 10:49 HPI - Anesthesia Eval Consult details Narrative: 33yo F for EGD, Laparoscopic Sleeve Gastrectomy, possible diaphragmatic hernia repair, possible ventral hernia repair, possible open PMFSH Past Medical History Medical History Family history of anesthesia complication Slow to wake up after anesthesia Seasonal allergies Asthma GERD (gastroesophageal reflux disease) Knee pain Anxiety Depression Sleep apnea Functional capacity: wheelchair bound Family History Family History Paternal Grandfather Anesthesia complication Pertinent family history: Grandfather had ?anaphylactic reaction and ?cardiac arrest while having surgery. Successfully resuscitated and ?surgery completed per patient(unclear if surgery completed at this time or if grandfather was brought back on another day for same surgery. No other anesthetic complications noted. Surgical History Surgical History Hx of colonoscopy History of wisdom tooth extraction History of sinus surgery History of Problems with Anesthesia: No (Slow awakening ) Social History Social History Household Members: Family Housing: House Are you a primary direct care counselor to a significant other at home: No Do you presently have visiting nurse or other home services: No Alcohol intake: never Comment: aware of trip hazard Patient Tobacco Use Status: Never used Tobacco Use of substances other than those prescribed or required for medical reasons: No Have you been hit, kicked, punched, or otherwise hurt by someone within the past year? If so, by whom?: No Are you DNR?: No Advance Directives: No Advance Directives Information Provided: Yes Advance Directives on File: No Recently lost weight without trying: No Nutrition Risks: No Nutritional Risk Patient : No FDLMP: 11/25/2023 : No Poor oral hygiene: No Current occupational status: employed Meds Allergies Allergy/AdvReac Type Severity Reaction Status Date / Time ibuprofen AdvReac Severe dehydrated, Verified 12/10/23 07:45 delirious, went to ED Home Medications ?Medication ?Instructions ?Recorded ?Confirmed ?Last Taken ?Type omeprazole 20 mg capsule,delayed 20 mg PO DAILY 01/30/23 12/01/23 Unknown History release cetirizine 10 mg tablet (Zyrtec) 10 mg PO DAILY PRN Allergy Symptoms 12/01/23 12/01/23 Unknown History Exam Height,Weight and Vital Signs: Height 5 ft 5 in Weight 107.501 kg Vital Signs Temp Pulse Resp BP Pulse Ox O2 Del Method 12/10/23 06:34 97.9 F 86 18 119/74 96 Room Air Pertinent Lab Results Pertinent Lab Results: Laboratory Tests 11/30/23 11/30/23 07:29 07:37 WBC 7.7 RBC 4.45 Hgb 13.3 Hct 40.4 MCV 90.8 MCH 29.9 MCHC 32.9 RDW 12.2 Plt Count 213 MPV 10.3 Immature Gran % (Auto) 0.3 Neut % (Auto) 56.3 Lymph % (Auto) 33.5 [place] % (Auto) 7.3 Eos % (Auto) 2.1 Baso % (Auto) 0.5 Lymph # (Auto) 2.6 [place] # (Auto) 0.6 Eos # (Auto) 0.2 Baso # (Auto) 0.0 Abs Immat Gran (auto) 0.02 Absolute Neuts (auto) 4.4 Absolute Nucleated RBC 0.000 Nucleated RBC % (auto) 0.0 PT 13.1 INR 1.1 APTT 34.4 Sodium 143 Potassium 4.1 Chloride 104 Carbon Dioxide 27 Anion Gap 16 BUN 17 H Creatinine 0.80 Estim Creat Clear Calc TNP Estimated GFR > 60 Random Glucose 92 Estimat Average Glucose 105 Hemoglobin A1c % 5.3 Insulin Level 10 Calcium 10.1 Total Bilirubin 0.8 AST 15 ALT 21 Alkaline Phosphatase 43 C-Reactive Protein 2.33 H Total Protein 7.4 Albumin 4.3 Triglycerides 103 Cholesterol 183 LDL Cholesterol, Calc 126 H HDL Cholesterol 37 L TSH 0.76 Blood Type O Positive Antibody Screen NEGATIVE Laboratory Results - last 24 hr 12/10/23 06:00 Urine Test NEGATIVE Airway Mallampati Class: II TM Dist: >3cm Neck ROM: Full Loose/Missing/Broken Teeth: No (Root canal top back right. Denies broken, loose, missing teeth) Heart: RRR Lungs: CTAB Assessment and Plan Assessment Anesthesia Assessment: Anesthesia Plan Discussed and Chart Reviewed Final Anesthetic Review History of Problems with Anesthesia: No (Slow awakening ) NPO: Yes ASA Class: III Final Preanesthetic Review: No Changes in Pt Med Stat, Meds/Allgs Chart Reviewed, Consent Obtained/Reviewed and Anes Risks/Benef Reviewed Patient Risk: Intermediate Procedure Risk: Intermediate Assessment/Block/Sedation in SS: Assess/Block/Sedation-SS Anesthetic Plan Anesthetic Plan: GA Disposition: Standard PACU and Inp. Admit - Standard Bed
[2023-12-10] VITALS (12 sets, daily range): BP systolic 119–160; BP diastolic 66–99; PULSE 47–104; RESP 14–21; TEMP 35.9–36.9; O2SAT 93–99; BMI 39.1
[2023-12-10 06:21] LABS: UPreg QC Valid YES; Urine Pregnancy NEGATIVE (NEGATIVE)
[2023-12-10] MEDS: Lactated Ringers 1,000 ML 100 ML IVCONT ×3 (06:22→23:35)
[2023-12-10] MEDS: Lactated Ringers 1,000 ML 999 ML IV (06:23)
--- NOTE | 2023-12-10 06:47 | PC.NURSE ---
author spoke with dr. tomas and antonio swab that was ordered is not to be completed preop as ordered.
[2023-12-10] MEDS: Aprepitant 32 MG/4.4 ML VIAL IVPUSH (06:51)
--- NOTE | 2023-12-10 07:37 | MHC.SHP ---
Pre-Procedural Eval Section A - 24 Hr Update-Section A only Date of Service: 12/10/23 The patient is an INPATIENT: No Section B - Complete if H&P > 30 days Chief Complaint: Morbid (severe) obesity due to excess calories Relevant Family History (Specify if Yes): No Relevant Social History: None Present Medications: None Medical History: No relevant PMH History of Previous Operations: No relevant previous surgery Allergies: Allergies Allergy/AdvReac Type Severity Reaction Status Date / Time ibuprofen AdvReac Severe dehydrated, Verified 12/01/23 08:22 delirious, went to ED Review of Systems Sugical H&P ROS: Negative: Constitution, Cardiovascular, Respiratory, Neurological, Psychiatric, Hem-Onc, Allergic/Immunologic, Gastrointestinal, Genitourinary, Musculoskeletal, Integumentary, Endocrine and Eyes/Ears/Nose/Throat Exam Surgical H&P Exam: Normal: HEENT, Normal: Heart, Normal: Lungs, Normal: Extremities, Normal: Abdomen, Normal: Skin and Normal: Neurological Plan Diagnosis/Plan: Unchanged I have reviewed the history and physical and performed a pertinent physical examination on my patient. No changes have occurred unless specified. Time Spent With Patient Time: Total time managing care of this patient today ____ minutes.
--- NOTE | 2023-12-10 07:50 | PM.OP ---
Brief Operative Note Date of Service: 12/10/23 Pre-op diagnosis: Severe obesity with comorbidities (see below) Post-op diagnosis: same Procedure: INITIAL PATIENT BMI ON PRESENTATION AT OUR OFFICE: 43.1 kg/m2 LAST BMI BEFORE SURGERY: 39.5 kg/m2 COMORBIDITIES: GERD, asthma, depression, anxiety, GERD ?The patient presented to the Weight Management Program with significant obesity that was negatively impacting the patient's comorbidities as listed above.? The program is a phased program with a special focus on preoperative medical weight management to promote substantial weight loss and prepare the patients for the second phase of the program: bariatric surgery. The patient participated in an intensive weekly lifestyle ?intervention and exercise program during which the patient ?has lost between the initial office visit and the last preoperative visit 21.2lbs, or 8.2% of initial actual body weight. It was deemed appropriate for the patient to now have bariatric surgery. In light of the current Covid-19 pandemic and the well documented strong association of obesity and increased risk of worse outcomes if infected with Covid-19 (REFERENCES:https://pubmed.ncbi.nlm.nih.gov/88447808/,?https://pubmed.ncbi.nlm.nih.gov/44683968/), any delay in undergoing bariatric surgery may lead to the patient's worsening health condition and increased?risk of more severe Covid-19 disease if infected. In addition a recent?study from [facility] published in [facility] on 06/17/2021 ([email or web address]) found that, among patients with obesity, substantial weight loss achieved with surgery was associated with improved outcomes of COVID-19 infection. The findings suggest that obesity can be a modifiable risk factor for the severity of COVID-19 infection. In addition, the patient met the BMI-criteria for bariatric surgery based on the BMI on initial presentation. The patient should not be penalized for achieving such weight loss because ?it is not sustainable long-term without surgical intervention and it was achieved in preparation for bariatric surgery ?under my direction and based on my published research ([email or web address]).[email or web address] and?https://www.soard.org/article/[email or web address](62)60313-X/pdf) ?that a 10% preoperative weight loss improves long-term weight loss after surgery and reduces perioperative complications.? Insurance carriers such as [facility] have endorsed my recommendations ?and have included in their policies criteria to include a 10% preoperative weight loss requirement. PROCEDURE: Esophago-gastroscopy, laparoscopic sleeve gastrectomy and laparoscopic gastropexy INDICATIONS: This is a 33 year-old female who was electively scheduled for laparoscopic, possibly open sleeve gastrectomy. The risks and complications of the procedure were discussed with the patient in advance, particularly the possibility of ; pulmonary embolism; staple line leak; bleeding; GERD; cardiac, pulmonary, or renal complications; as well as long-term problems such as insufficient weight loss, vitamin deficiency, strictures, or ulcers. The patient understood all the risks, and was in agreement to proceed with surgery. DESCRIPTION OF PROCEDURE: After informed consent was obtained from the patient, the patient was given preoperative antibiotics, and was transferred to the operating room. After successful induction of general anesthesia, pneumatic compression devices were placed on both lower extremities. An upper endoscopy was performed next. The oropharynx and esophagus appeared to be within normal limits. The stomach was entered. Then after all fluid and air were suctioned and the stomach was fully decompressed, the scope was withdrawn and secured in the mid esophagus. The patient was then prepped and draped in the usual sterile manner, and abdominal access was established at the right upper quadrant with the Sarika technique. A 12 mm blunt port was inserted, and the abdomen was insufflated with CO2 to a pressure of 15 mmHg. Under direct visualization, additional ports were placed, specifically two 5 mm Versi-step ports to the left upper quadrant, and a 5 mm Versi-Step port to the right upper quadrant. 1% lidocaine plain was used to infiltrate all port sites as well as all fascia defects. Following that, the patient was placed in a steep reverse Trendelenburg position. An additional 5 mm port was placed to the right flank for the Mediflex retractor that was used to retract the left lobe of the liver. The gastro-esophageal fat pad was opened with the ultrasonic device (Thkeraerbekatya, Olympus) and the anterior esophagus and hiatus were exposed. The angle of His was opened with the ultrasonic device the fundus of the stomach from any diaphragmatic and splenic attachments. I then opened the gastrocolic ligament between the transverse colon and the greater curvature of the stomach with the ultrasonic device to enter the lesser sac and facilitate the ligation of the short gastric vessels. I started at a mid-point along the greater curvature and using the Thunderbeat, all short gastric vessels were divided all the way to the angle of His until the left osorio was completely dissected at its entirety. I then divided the gastro-colic ligament distally to a distance of about 3-4 cm proximal to the pylorus.? The stomach was then divided transversely with two Endo FRANNY-45 purple and four FRANNY-60 articulating purple loads using the InCorta stapler and loads. Every effort was made that the gastric sleeve had a tubular shape and an even caliber throughout. Once the sleeve resection was completed, the staple line of the gastric sleeve was reinforced with Hemoclips. The resected stomach was retrieved without difficulty from the Sarika port. A gastropexy was then performed in order to prevent postoperative GERD and partial gastric volvulus. Several interrupted 2.0 Surgidac sutures were placed between the sleeve's staple line and the previously divided greater omentum and gastro-colic ligament using the Endo-Stitch device. ?An upper endoscopy was performed. There was no narrowing at the GE junction. The scope was easily advanced all the way to the pylorus which was clearly visualized. There was no narrowing anywhere and the sleeve's caliber was even throughout. The sleeve's staple line was inspected and there was no evidence of ischemia, bleeding or dehiscence. At that point the gastroscope was withdrawn from the patient?s mouth while we were decompressing the bowel and the stomach from any remaining air. I looked into the lesser sac to see how the sleeve was situating and it was situating well. There was no bleeding from the staple line, spleen, or short gastric vessels. The Mediflex retractor was removed, and the undersurface of the liver was inspected and there was no bleeding. The patient was placed in supine position. I closed the fascial defect of the 12 mm port site with a figure of eight #1 Polysorb suture. Then 30cc Ropivacaine plain with 10 mg of Dexamethasone were used to infiltrate the fascial closure as well as all skin incisions. A total of 7ml Zynrelef was applied in the Sarika wound. At this point, the abdomen was deflated, all ports were removed under direct vision, and no bleeding was noted from any of the port sites. The skin incisions were irrigated with saline and were closed with 4-0 absorbable monofilament sutures. Steri-Strips and OpSites were used to cover all incisions. The patient was extubated and was transferred in stable condition to the recovery room for further care. I was present and performed all rojas parts of the procedure. Mr. King was the wheelchair van operator first responder. There were no residents to assist with this case. Dillon Nunez MD, PhD, FACS Surgeon: Vimal Nunez MD Anesthesia: GETA, local and other (TAP block and 7ml Zynrelef) Was an Window Shade Cloth Sewer used for this Procedure?: No Window Shade Cloth Sewer: Enrique King Estimated blood loss (mL): 10 IV fluids (mL): 2,000 Urine output (mL): 500 Pathology: other (Stomach) Condition: stable Disposition: PACU
--- NOTE | 2023-12-10 07:53 | P.PNGS_ITS ---
Subjective Subjective Date of Service: 12/10/23 Interval history: Feels well. Mild incisional pain. She is tolerating phase 1 bariatric diet Physical Exam 2 Vital Signs: Vital Signs: Last Vital Signs Temp 97.9 F 12/10/23 06:34 Pulse 86 12/10/23 06:34 Resp 18 12/10/23 06:34 BP 119/74 12/10/23 06:34 Pulse Ox 96 12/10/23 06:34 O2 Del Method Room Air 12/10/23 06:34 BMI result Body Mass Index 39.1 GI: Inspection: Yes normal to inspection, Yes incision (clean, dry and intact) and Yes obesity Extrem: Right lower extremity: normal to inspection (no calf tenderness) L eft lower extremity: normal to inspection (no calf tenderness) Objective Data Active Medications Albuterol Sulfate (Albuterol Sulfate (0.083%) 2.5 Mg/3 Ml Vial.Neb) 2.5 mg INHALE ONCE PRN PRN Reason: Shortness of Breath/Wheezing Lactated Ringer's (Lr) 1,000 mls @ 100 mls/hr IVCONT .Q10H [facility] Last Admin: 12/10/23 06:22 Dose: 100 mls/hr Documented By: EDWRAD Lactated Ringer's (Lr) 1,000 mls @ 999 mls/hr IV .Q1H1M [facility] Stop: 12/10/23 08:15 Last Admin: 12/10/23 06:23 Dose: 999 mls/hr Documented By: EDWARD Labs 11/30/23 07:37 11/30/23 07:37 Labs: Laboratory Results - last 24 hr 12/10/23 06:00 Urine Test NEGATIVE Procedures Date of Service Date of Service: 12/10/23 Progress Note: A&P Assessment and plan (1) Obesity: Status: Acute Assessment and Plan: s/p laparoscopic sleeve gastrectomy and gastropexy Doing well Will check am labs and if OK the patient will be discharged home (2) BMI 39.0-39.9,adult: Status: Acute (3) GERD (gastroesophageal reflux disease): Status: Acute (4) Knee pain: Status: Acute (5) Anxiety: Status: Acute (6) Depression: Status: Acute (7) Asthma: Status: Acute (8) S/P laparoscopic sleeve gastrectomy: Status: Acute Time Spent With Patient Time: Total time managing care of this patient today ____ minutes. Quality Stroke Does the patient have a stroke diagnosis?: No VTE Prior VTE?: No VTE Risk Level:: Surgical - moderate VTE Device Contraindication: N/A - Device Ordered VTE Drug Contraindication: Treatment Not Indicated
--- NOTE | 2023-12-10 11:20 | PM.DS ---
DS: Providers Provider Date of Service: 12/11/23 Primary care physician: Karthik Lemus MD DS: Diagnosis Discharge Diagnosis (1) Obesity: Status: Acute (2) BMI 39.0-39.9,adult: Status: Acute (3) GERD (gastroesophageal reflux disease): Status: Acute (4) Knee pain: Status: Acute (5) Anxiety: Status: Acute (6) Depression: Status: Acute (7) Asthma: Status: Acute DS: Summary Hospital Course Hospital Course: ADMITTING DIAGNOSIS: obesity, ptsd, depression, anxiety, gerd, asthma ? DISCHARGE DIAGNOSIS: same, s/p laparoscopic sleeve gastrectomy ? PAST SURGICAL HISTORY: sinus surgery ? PROCEDURE: upper endoscopy, laparoscopic sleeve gastrectomy ? DISCHARGE SUMMARY: ? History of Present Illness: ? The patient is a?33 year-old woman with a BMI of?42.9 kg/m2 and associated co-morbidities as described above. The patient had extensive work-up,lost?21.1 lbs preoperatively and was electively scheduled for laparoscopic, possible open sleeve gastrectomy and gastropexy. Risks and complications of the surgery were discussed with the patient in advance, particularly the possibility of , pulmonary embolism, anastomotic leak, bleeding, bowel injury, GERD, cardiac, renal or pulmonary complications. The patient understood all the risks and was in agreement with the surgical plan. ? Hospital Course: ? The patient underwent an uneventful laparoscopic sleeve gastrectomy with gastropexy on the day of admission. Postoperatively, the patient was transferred to the surgical floor. The patient received IV Acetaminophen and IV dilaudid for pain control. Patient was started on bariatric phase 1 diet POD #0. On postoperative day one, the patient was feeling well without nausea, vomiting, fevers, or tachycardia. The patient had some mild incisional pain and the abdomen was soft. ? On the morning of postoperative day one, the patient was continued on 1 ounce of water or ice every half hour. During the day, the patient did fairly well, having some incisional pain, but able to ambulate adequately and to tolerate liquids well. ? Since the patient is doing well, we decided that the patient was ready to be discharged. The patient was given instructions to follow-up with me next week and to call my office for any fever over 101, persistent abdominal pain, nausea, vomiting, GERD, symptoms of DVT such as calf tenderness, or leg swelling, or pulmonary embolism such as chest pain or shortness of breath. The patient was also instructed to drink 40-60 ounces of liquids per day using the 1-ounce cups. The patient had been given prescriptions for Tylenol for pain, Zofran prn for nausea, and pantoprazole and carafate previously. The patient was encouraged to ambulate and use the incentive spirometer. The patient was allowed to shower, but no baths, and encouraged to stay active at home. All of these instructions were given to the patient personally. All questions were answered and the patient understood all instructions, the instructions were also given to the patient in print. Time Attestation Total time managing care of this patient today: 25 mintues. Discharge Coordination Time (in mins): 25 Quality: Safe Use of Opioids Does Pt have an Active Cancer Diagnosis on the Problem List?: No Quality: Stroke Does the patient have a stroke diagnosis?: No Physical Exam Vital Signs: Vital Signs: Last Vital Signs Temp 97.9 F 12/10/23 06:34 Pulse 86 12/10/23 06:34 Resp 18 12/10/23 06:34 BP 119/74 12/10/23 06:34 Pulse Ox 96 12/10/23 06:34 O2 Del Method Room Air 12/10/23 06:34 BMI result Body Mass Index 39.1 DS: Data Data Completed and Pending Pending studies at discharge: Pending at discharge 12/10/23 10:50 Surgical [PTH] Routine Labs on day of discharge: Laboratory Results - last 24 hr 12/10/23 06:00 Urine Test NEGATIVE Discharge Plan Discharge Anticipated Discharge Date/Time: 12/11/23 10:00 Patient Disposition: Home, Self-Care Discharge Diagnosis: s/p laparoscopic sleeve gastrectomy Referrals: Karthik Lemus MD [Primary Care Provider] - 1 Week Discharge Medications: Continued cetirizine [Zyrtec] 10 mg Tablet 10 mg PO DAILY PRN (Reason: Allergy Symptoms) fluticasone propionate 110 mcg/actuation Hfa Aerosol Inhaler 1 puff INHALATION BID PRN (Reason: Shortness Of Breath Or Wheezing) albuterol sulfate [Ventolin HFA] 90 mcg/actuation HFA aerosol inhaler 1 inh inhalation QID PRN (Reason: shortness of breath or wheezing) 30 Days Qty: 6.7 0RF pantoprazole 40 mg tablet,delayed release (DR/EC) 40 mg PO DAILY Qty: 90 0RF sucralfate 100 mg/mL suspension 10 ml PO BID Qty: 600 2RF ondansetron 4 mg tablet,disintegrating 4 mg PO Q12H Qty: 20 0RF Rx Instructions: Only take one every 12 hours as needed if you have nausea Discontinued cholecalciferol (vitamin D3) 50 mcg (2,000 unit) capsule 50 mcg PO DAILY Qty: 30 5RF Discharge Orders: Discharge Order (Routine); Ordered 12/11/23 Ordered By: Enrique King Activity on Discharge: No heavy lifting Stand Alone Forms: Patient Portal Discharge page Print Language: Wallisian Care Plan Goals: weight loss Health Concerns: obesity Plan of Treatment: No tub baths, sex or returning to work until discussed at first post op appointment. No exercise, alcohol, tobacco or illegal drug use. Continue to use incentive spirometer hourly while awake. Walk in home for 5- 10 minutes every 2 hours during the first week. Follow all instructions in the bariatric handbook and call with any questions.Discharge Instructions 1. Please call your doctor or come back to the emergency room should any new symptoms arise. 2. You will receive a courtesy call from [facility] 24-48 hours after discharge. 3. Activity: abstain from alcohol, practice limited stair climbing, no bending, no driving, no exercise, no illicit substances, no lifting, no sex, no tub bath, no work. 4. Diet: continue as discussed with Dr. Nunez. 5. Dressing Change/Wound Care: Your incision is covered by clear bandages and guaze underneath. If the area is tender, you may apply an ice pack for short intervals (no more than 20 minutes on, followed by at least 20 minutes off). Do not apply heat. Do not use creams, lotions, or topical antibiotics unless instructed to do so by your surgeon. These can cause infection or allergic reaction. 6. Call your doctor if: - Your temperature exceeds 101.5 F - You experience excessive pain or swelling - You have an unexpected reaction to medication - You have excessive bleeding - You experience continued vomiting/nausea - Your incision begins to separate - Your incision shows signs of infection such as increased redness, swelling, excessive pain, heat, or drainage (light blood or clear fluid is normal) 7. General instructions: No lifting greater than 5 lbs for 1 week and not more than 20lbs the next 3?weeks. No driving until seen at the office in 5-7 days after surgery. If you do not move your bowels in the next 2 days, please tell?Dr. Nunez. Please walk around your home every hour or two to prevent blood clots from forming in your legs. You do not need to wake from sleeping to walk. Please sleep in a bed or couch to prevent kinking at the hips and knees. Please take your incentive spirometer (your lung pulp mill team leader) home with you and use it for the next few days to prevent pneumonia. You may shower, no hot tubs, baths or swimming pools.?Please follow the post op diet instructions you are?given by Dr Nunez? and text me daily at 5-6pm for an update.?If you have any issues or concerns or questions please communicate this to him via text.? The Celebrate shakes have all of the bariatric vitamins you need if you consume these shakes. If you are drinking other protein shakes, you will need to purchase the Celebrate multivitamins and calcium that are available in the hospital gift shop on the first floor of the main hospital.??Do not take anything without first discussing with Dr Nunez. Please make sure you are consuming at least 40 ounces of fluids per day starting the?day AFTER your discharge from the hospital. Always drink 1-2 ml per minute using the 5ml?syringe. If you drink faster you may experience?bloating,?gas pain, burping, nausea or heartburn. In that case please slow down your pace and use the syringe to?understand better the?proper?pace and volume of drinking. Do not hesitate to contact the office with any questions at . The patient's medical history has been reviewed and they are considered low risk for post op DVT and therefore DVT prophylaxis is not considered necessary. Travel after surgery was reviewed. The patient has not disclosed any travel plans during the first 30 days after surgery and they have been advised that within the first 30 days after surgery any bus, plane, train or car travel over 2 hours in duration is contraindicated due to the possibility of developing blood clots from immobility. Any travel, needs to include periods of ambulation of 10 minutes in duration every 2 hours.? The patient was instructed to discuss any plans for travel during this period with their bariatric surgeon. Assessment: stable s/p laparoscopic sleeve gastrectomy
[2023-12-10 12:14] LABS: Hematocrit 37.4 % (37.0-47.0); Hemoglobin 13.1 g/dl (12.0-16.0)
[2023-12-10 12:32] LABS: Anion Gap 14 (12-20); Blood Urea Nitrogen 10 mg/dL (9-16); Calcium 8.8 mg/dL (8.4-10.2); Carbon Dioxide 23 mmol/L (22-29); Chloride 106 mmol/L (96-108); Creatinine Clr Calc Pharmacy 128.8; Estimated Glomerular Filt Rate > 60; Glucose Random 143 mg/dL (60-115); Potassium 4.1 mmol/L (3.3-5.1); Sodium 139 mmol/L (135-145)
--- NOTE | 2023-12-10 14:15 | PHA.MEDREC ---
Pharmacy Consult ? Medication Reconciliation Pharmacy has completed the medication reconciliation.
[2023-12-10] MEDS: ceFAZolin Sodium/Dextrose,Iso 2 GM/50 ML PIGGYBACK IV (14:34)
[2023-12-10] MEDS: Acetaminophen 1,000 MG/100 ML PIGGYBACK 16.7 MG IV ×2 (15:45→21:49)
--- NOTE | 2023-12-10 16:17 | PC.NURSE ---
Pt heart rate 44 when pt sleeping , pt heart rate up to 60s when awake, md made aware . pt oob ambulating in zuniga , using incentive spirometer , tolerating phase 1 diet .
[2023-12-10] MEDS: 0.9 % Sodium Chloride Flush 3 ML SYRINGE IVFLUSH (21:17)
[2023-12-10] MEDS: Famotidine/PF 20 MG/2 ML VIAL IVPUSH (21:17)
[2023-12-11] MEDS: Acetaminophen 1,000 MG/100 ML PIGGYBACK 16.7 MG IV (02:47)
[2023-12-11 04:00] VITALS: BP 134/83; PULSE 67; RESP 16; TEMP 36.2; O2SAT 96
[2023-12-11 06:51] LABS: MANUAL DIFF FLAG NO
[2023-12-11 07:05] LABS: Basophils Percent Auto 0.1 % (0-2); Hematocrit 35.3 % (37.0-47.0); Hemoglobin 12.1 g/dl (12.0-16.0); Imm Gran Pct Auto 0.7 % (0.0-0.4); Lymphocytes Absolute Auto 1.5 X10*3/uL (1.2-4.9); Lymphocytes Percent Auto 10.6 % (20-40); Mean Corpuscular HGB Conc 34.3 g/dl (31.0-35.0); Mean Corpuscular Hemoglobin 29.7 pg (27.0-33.0); Mean Corpuscular Volume 86.7 fL (80.0-98.0); Mean Platelet Volume 10.9 fL (9.4-12.3); Monocytes Absolute Auto 0.7 X10*3/uL (0.1-1.2); Monocytes Percent Auto 4.9 % (2-11); Neutrophils Absolute Auto 12.1 x10*3/uL (2.0-8.3); Neutrophils Percent Auto 83.7 % (45-73); Platelet Count 183 X10*3/uL (160-400); Red Blood Count 4.07 X10*6/uL (4.20-5.50); Red Cell Distribution Width 12.1 % (11.0-16.0); White Blood Count 14.4 X10*3/uL (4.8-10.8)
[2023-12-11 07:15] VITALS: BP 149/86; PULSE 65; RESP 14; TEMP 36.2; O2SAT 97
[2023-12-11 07:17] LABS: Anion Gap 17 (12-20); Blood Urea Nitrogen 7 mg/dL (9-16); Calcium 9.4 mg/dL (8.4-10.2); Carbon Dioxide 19 mmol/L (22-29); Chloride 107 mmol/L (96-108); Creatinine Clr Calc Pharmacy 146.1; Estimated Glomerular Filt Rate > 60; Glucose Random 108 mg/dL (60-115); Potassium 4.5 mmol/L (3.3-5.1); Sodium 138 mmol/L (135-145)
[2023-12-11] MEDS: Famotidine/PF 20 MG/2 ML VIAL IVPUSH (08:02)
--- NOTE | 2023-12-11 09:33 | MHC.CM.PN ---
Patient from home w/ family. Functionally independent. Denies use of services or DME. PCP Allan APONTE HCP completed. Patient named brother Taco as HCA. Copy provided to pt and copy placed in chart. DP: Patient medically cleared for dc home self care. Brother at bedside to transport.
--- NOTE | 2023-12-11 15:11 | HO.POSTANES ---
Post Anesthesia Evaluation Post Anesthesia Evaluation Date of Service: 12/11/23 Vital Signs: Vital Signs Temp Pulse Resp BP Pulse Ox O2 Del Method 12/11/23 07:15 97.1 F 65 14 149/86 H 97 Room Air 12/11/23 04:00 97.2 F 67 16 134/83 96 Room Air Anesthesia: General Endotracheal-GETA Mental Status: Awake Pain Control: Satisfactory Nausea/Vomiting: None Hydration: Adequate Anesthesia-Related Issues: No Anes. Related Issues
== END 2023-12-11 10:35 | disposition home or self-care (01) | DRG 403 ==
LOC: HO.SSSA 11:22 → HO.S3 11:30
PROVIDERS: Nurse Practitioner; Physician Assistant Surgical; Admitting Provider Surgery; PCP Family Medicine; Visit Provider Surgery
PROC: 0DB64Z3 Excision of Stomach, Percutaneous Endoscopic Approach, Vertical (ICD-10-PCS; CPT 43845; principal; 2023-12-10 07:30)
DX: E66.01 Morbid (severe) obesity due to excess calories (principal); F32.A Depression, unspecified; K21.9 Gastro-esophageal reflux disease without esophagitis; Z68.39 Body mass index [BMI] 39.0-39.9, adult; F41.9 Anxiety disorder, unspecified; J45.909 Unspecified asthma, uncomplicated; Z79.51 Long term (current) use of inhaled steroids; Z79.899 Other long term (current) drug therapy
CPT/HCPCS: 36415; 80048; 80053; 80061; 81025; 83036; 83525; 84443; 85014; 85018; 85025; 85610; 85730; 86140; 86850; 86900; 86901; 88304; 88305; 88307; 88342; A4649; C9088; C9145; J0131; J0690; J1100; J1170; J2250; J2405; J2704; J2795; J3010; J7120

== ENCOUNTER → 2023-12-10 11:21 | Outpatient (BNV) | payer OTHER, SELFPAY | PROVIDERS: Admitting Provider Surgery; PCP Family Medicine; Visit Provider Surgery | DX: E66.09 Other obesity due to excess calories (principal); Z68.39 Body mass index [BMI] 39.0-39.9, adult | CPT/HCPCS: 43659; 43775; 99238 ==

== ENCOUNTER 2023-12-18 10:25 | Outpatient (AMB) | payer OTHER, SELFPAY ==
--- NOTE | 2023-12-18 10:49 | A.OFFVIS_ITS ---
VS Expanded 12/18/23 11:16 BP 135/65 Blood Pressure Location Rt brachial Blood Pressure Position Sitting Pulse 103 H Pulse Source Pulse Oximeter Temp 97.4 F Temperature Source Temporal Artery Scan Pulse Oximetry 96 Oxygen Delivery Method Room Air Height 5 ft 5 in Weight 220 lb 6.4 oz BMI 36.7 Body Fat % 41.1 Body Fat Mass 90.6 Fat Free Mass 129.6 Visceral Fat Rating 9.0 Body Water % 41.1 Body Water Mass 93.0 Muscle Mass/Score 123.0 Basal Metabolic Rate/Score 1,820 Intake Visit Reasons: (OV) PO LSG 12/10/23 Allergies ibuprofen Adverse Reaction (Severe, Verified 12/18/23 11:27) dehydrated, delirious, went to ED HPI Comments Details: 33-year-old female, postop day 8., status post laparoscopic sleeve gastrectomy performed on 12/10/2023. She has switched over to premier protein ready to drink shakes, she is doing 2. As well as 1 premier protein ready to drink, 4 oz with 4 oz of almond milk. She has drinking an additional 20-24 oz of water or Gatorade zero. She is moved her bowels. [facility] Medical History Family history of anesthesia complication Slow to wake up after anesthesia Seasonal allergies Asthma GERD (gastroesophageal reflux disease) Knee pain Anxiety Depression Sleep apnea Surgical History (Updated 12/18/23 @ 11:27 by Evie Salas CMA) Hx of laparoscopic partial gastrectomy Hx of colonoscopy History of wisdom tooth extraction History of sinus surgery Family History Paternal Grandfather Anesthesia complication Social History Household Members: Family Housing: House Are you a primary insurance healthcare consultant to a significant other at home: No Do you presently have visiting nurse or other home services: No 75 years or older and lives alone: No Alcohol intake: never Comment: aware of trip hazard Patient Tobacco Use Status: Never used Tobacco service: No Current occupational status: employed Physical Exam GI Other: Mild bruising, otherwise incisions are clean, dry, intact. Assessment & Plan Assessment & Plan (1) S/P laparoscopic sleeve gastrectomy: Code(s): Z98.84 - Bariatric surgery status Category: Surgical Plan: POD 8 s/p LSG on 12/10/[address] Nunez Weight loss prior to surgery was 21.1 pounds or 8.1 % TBWL. Original weight on 02/27/2023 was 257.6 pounds and op weight was 236.5 pounds. Be sure to text Dr Nunez exactly 1 week after surgery your weight from your home scale so he can adjust your meal plan. Continue meal plan until f/u w Krystle in 2 weeks May shower, no submersion in bath for another week Continue abdominal binder with activity and exercise for the next 2 weeks. Exercise prior to surgery was stationary bike and may resume No abdominal exercises for 6 weeks post operatively Will be emailed link to post op video for review Reminded of the pace of drinking, 2 mL per minute, 1 oz/15 min.
[2023-12-18 11:16] VITALS: BP 135/65; PULSE 103; TEMP 36.3; O2SAT 96; BMI 36.7
== END 2023-12-18 11:34 | disposition home or self-care (01) ==
PROVIDERS: PCP Family Medicine; Visit Provider Physician Assistant Surgical
DX: Z98.84 Bariatric surgery status (principal)
CPT/HCPCS: 99024

== ENCOUNTER → 2023-12-18 10:25 | Outpatient (BNVA) | payer OTHER, SELFPAY | PROVIDERS: PCP Family Medicine; Visit Provider Physician Assistant Surgical ==

== ENCOUNTER 2024-01-06 12:04 | Outpatient (AMB) | payer OTHER, SELFPAY ==
--- NOTE | 2024-01-06 12:05 | A.OFFVIS_ITS ---
VS Expanded 01/06/24 12:12 BP 118/82 Blood Pressure Location Rt brachial Blood Pressure Position Sitting Pulse 90 Pulse Source Pulse Oximeter Temp 98.1 F Temperature Source Tympanic Pulse Oximetry 95 Oxygen Delivery Method Room Air Height 5 ft 5 in Weight 215 lb 3.2 oz BMI 35.8 Body Fat % 39.3 Body Fat Mass 84.6 Fat Free Mass 130.6 Visceral Fat Rating 8.0 Body Water % 43.5 Body Water Mass 93.6 Muscle Mass/Score 93.6 Basal Metabolic Rate/Score 1,821 Intake Visit Reasons: (OV) PO LSG 12/10/23 Allergies ibuprofen Adverse Reaction (Severe, Verified 01/06/24 12:15) dehydrated, delirious, went to ED Medication List - Last Reconciled 01/06/24 by FRANK Rascon albuterol sulfate 90 mcg/actuation (Ventolin HFA) 1 inh inhalation QID PRN 30 days cetirizine (Zyrtec) 10 mg PO DAILY PRN fluticasone propionate 110 mcg/actuation 1 puff inhalation BID PRN pantoprazole 40 mg PO DAILY sucralfate 10 mL PO BID HPI Comments Details: This?is a?33?yo female who is s/p LSG 12/10/2023. Presents for 1 month post op visit. 8.8lb weight loss since last OV. No complaints of emesis, abdominal pain or reflux, or constipation. Had some nausea with linn MVI, going to get a different version. Taking Colace and fiber for constipation which are helping. Present meal plan includes: Premier shakes- 2 per day 1 bar- Quest or Atkins tries to get all protein in, sometimes can't finish second shake staying hydrated- gets 3 16oz water bottles per day Exercise routine includes: walking [facility] Medical History (Updated 12/19/23 @ 00:02 by Rajan Prather) Pre-op evaluation Morbid obesity Chest pain Family history of anesthesia complication Slow to wake up after anesthesia Seasonal allergies Asthma GERD (gastroesophageal reflux disease) Knee pain Anxiety Depression Sleep apnea Surgical History Hx of laparoscopic partial gastrectomy Hx of colonoscopy History of wisdom tooth extraction History of sinus surgery Family History Paternal Grandfather Anesthesia complication Social History Household Members: Family Housing: House Are you a primary career center director to a significant other at home: No Do you presently have visiting nurse or other home services: No 75 years or older and lives alone: No Alcohol intake: never Comment: aware of trip hazard Patient Tobacco Use Status: Never used Tobacco service: No Current occupational status: employed Physical Exam Const General: cooperative, comfortable and no acute distress Orientation/consciousness: patient oriented x3 GI Other: soft, nontender, nondistended, steri-strips c/d/i Neuro General: patient oriented x3 Assessment & Plan Assessment & Plan (1) Obesity: Code(s): E66.9 - Obesity, unspecified Category: Medical (2) S/P laparoscopic sleeve gastrectomy: Code(s): Z98.84 - Bariatric surgery status Category: Surgical Plan Continue meal plan per Dr. Senior, pt to text him tomorrow for meal plan guidance. Pt no longer has to wear binder. Continue PPI and carafate. RTC 1 month. I spent a total of 30 minutes reviewing/updating records, examining the patient and counseling the patient on weight management as detailed above.
[2024-01-06 12:12] VITALS: BP 118/82; PULSE 90; TEMP 36.7; O2SAT 95; BMI 35.8
== END 2024-01-06 12:31 | disposition home or self-care (01) ==
PROVIDERS: PCP Family Medicine; Visit Provider Physician Assistant Surgical
DX: E66.9 Obesity, unspecified (principal); Z98.84 Bariatric surgery status
CPT/HCPCS: 99024

== ENCOUNTER → 2024-01-06 12:04 | Outpatient (BNVA) | payer OTHER, SELFPAY | PROVIDERS: PCP Family Medicine; Visit Provider Physician Assistant Surgical ==

== ENCOUNTER 2024-02-03 13:45 | Outpatient (AMB) | payer OTHER, SELFPAY ==
--- NOTE | 2024-02-03 13:55 | A.OFFVIS_ITS ---
VS Expanded 02/03/24 14:20 BP 134/65 Blood Pressure Location Rt brachial Blood Pressure Position Sitting Pulse 77 Pulse Source Pulse Oximeter Temp 97.2 F Temperature Source Tympanic Pulse Oximetry 96 Oxygen Delivery Method Room Air Height 5 ft 5 in Weight 211 lb BMI 35.1 Body Fat % 36.3 Body Fat Mass 76.6 Fat Free Mass 134.4 Visceral Fat Rating 7.0 Body Water % 45.7 Body Water Mass 96.4 Muscle Mass/Score 127.6 Intake Visit Reasons: OV PO LSG 12/10/23 Allergies ibuprofen Adverse Reaction (Severe, Verified 02/03/24 14:25) dehydrated, delirious, went to ED Medication List - Last Reconciled 02/03/24 by FRANK Rascon albuterol sulfate 90 mcg/actuation (Ventolin HFA) 1 inh inhalation QID PRN 30 days cetirizine (Zyrtec) 10 mg PO DAILY PRN fluticasone propionate 110 mcg/actuation 1 puff inhalation BID PRN pantoprazole 40 mg PO DAILY sucralfate 10 mL PO BID HPI Comments Details: This?is a?33?yo female who is s/p LSG 12/10/2023. Presents for 7 week post op visit. Weight at last visit on 01/06/2024 was 215.2 pounds; weight today is 211 pounds, representing a 4.2 pound weight loss with a BMI today of 35.1.? No complaints of nausea, emesis, reflux, or constipation. Had some abdominal pain last week, called office, better now, was wearing binder which helped. Present meal plan includes: 1 fairlife shake mixed with oat milk, another full strength shake and one bar Exercise routine includes: walking, stationary bike- but took a break from that while experiencing pain, plans to restart [facility] Medical History (Updated 12/19/23 @ 00:02 by Rajan Prather) Pre-op evaluation Morbid obesity Chest pain Family history of anesthesia complication Slow to wake up after anesthesia Seasonal allergies Asthma GERD (gastroesophageal reflux disease) Knee pain Anxiety Depression Sleep apnea Surgical History Hx of laparoscopic partial gastrectomy Hx of colonoscopy History of wisdom tooth extraction History of sinus surgery Family History Paternal Grandfather Anesthesia complication Social History Household Members: Family Housing: House Are you a primary college and career counselor to a significant other at home: No Do you presently have visiting nurse or other home services: No 75 years or older and lives alone: No Alcohol intake: never Comment: aware of trip hazard Patient Tobacco Use Status: Never used Tobacco service: No Current occupational status: employed Physical Exam Const General: cooperative, comfortable and no acute distress Orientation/consciousness: patient oriented x3 GI Other: soft, nontender, nondistended, incisions healing well, no erythema, no bulging, no masses Neuro General: patient oriented x3 Assessment & Plan Assessment & Plan (1) S/P laparoscopic sleeve gastrectomy: Code(s): Z98.84 - Bariatric surgery status Category: Surgical (2) Obesity: Code(s): E66.9 - Obesity, unspecified Category: Medical Plan Pt's episode of abdominal pain likely musculoskeletal in nature. She will let us know if pain worsens. Continue meal plan per Dr. Senior, continue to send weekly weights, may resume exercise and cleared for all activity. RTC at previously scheduled appt at end of month. I spent a total of 30 minutes reviewing/updating records, examining the patient and counseling the patient on weight management as detailed above.
[2024-02-03 14:20] VITALS: BP 134/65; PULSE 77; TEMP 36.2; O2SAT 96; BMI 35.1
== END 2024-02-03 14:36 | disposition home or self-care (01) ==
PROVIDERS: PCP Family Medicine; Visit Provider Physician Assistant Surgical
DX: E66.9 Obesity, unspecified (principal); Z68.35 Body mass index [BMI] 35.0-35.9, adult; Z90.3 Acquired absence of stomach [part of]; Z98.84 Bariatric surgery status
CPT/HCPCS: 99024

== ENCOUNTER → 2024-02-03 13:45 | Outpatient (BNVA) | payer OTHER, SELFPAY | PROVIDERS: PCP Family Medicine; Visit Provider Physician Assistant Surgical ==

== ENCOUNTER 2024-02-17 10:55 | Outpatient (AMB) | payer OTHER, SELFPAY ==
--- NOTE | 2024-02-17 10:58 | A.OFFVIS_ITS ---
VS Expanded 02/17/24 11:04 BP 136/79 Blood Pressure Location Rt brachial Blood Pressure Position Sitting Pulse 81 Pulse Source Pulse Oximeter Temp 96.5 F L Temperature Source Tympanic Pulse Oximetry 93 Oxygen Delivery Method Room Air Height 5 ft 5 in Weight 206 lb BMI 34.3 Body Fat % 37.6 Body Fat Mass 77.4 Fat Free Mass 128.6 Visceral Fat Rating 7.0 Body Water % 44.8 Body Water Mass 92.2 Muscle Mass/Score 122.2 Basal Metabolic Rate/Score 1,783 Intake Visit Reasons: OV PO LSG 12/10/23 Allergies ibuprofen Adverse Reaction (Severe, Verified 02/17/24 10:58) dehydrated, delirious, went to ED Medication List - Last Reconciled 02/17/24 by FRANK Rascon albuterol sulfate 90 mcg/actuation (Ventolin HFA) 1 inh inhalation QID PRN 30 days cetirizine (Zyrtec) 10 mg PO DAILY PRN fluticasone propionate 110 mcg/actuation 1 puff inhalation BID PRN pantoprazole 40 mg PO DAILY sucralfate 10 mL PO BID HPI Comments Details: This?is a?33?yo female who is s/p LSG 12/10/2023. Presents for 9 week post op visit. Weight at last visit 2 weeks ago was 211 pounds with BMI 35.1; weight today 206lbs with BMI 34.3. 5lb weight loss since last OV.? No complaints of nausea, emesis, reflux, or constipation. No further episodes of abdominal pain like previous; had some achy pain in abdominal wall which resolved quickly on its own. Tried vitamin capsules but they caused some nausea with dizziness. Switched back to chewable vitamins. Hydration isdequate, pacing herself. Current meal plan includes two shakes with bar per Dr. Thakkar Exercise: bike at home, tries to do daily [facility] Medical History (Updated 12/19/23 @ 00:02 by Rajan Prather) Pre-op evaluation Morbid obesity Chest pain Family history of anesthesia complication Slow to wake up after anesthesia Seasonal allergies Asthma GERD (gastroesophageal reflux disease) Knee pain Anxiety Depression Sleep apnea Surgical History Hx of laparoscopic partial gastrectomy Hx of colonoscopy History of wisdom tooth extraction History of sinus surgery Family History Paternal Grandfather Anesthesia complication Social History Household Members: Family Housing: House Are you a primary acute care assistant to a significant other at home: No Do you presently have visiting nurse or other home services: No 75 years or older and lives alone: No Alcohol intake: never Comment: aware of trip hazard Patient Tobacco Use Status: Never used Tobacco service: No Current occupational status: employed Physical Exam Const General: cooperative, comfortable and no acute distress Orientation/consciousness: patient oriented x3 GI Other: soft, nontender, nondistended, incisions well healed, no hernia, no masses Neuro General: patient oriented x3 Assessment & Plan Assessment & Plan (1) S/P laparoscopic sleeve gastrectomy: Code(s): Z98.84 - Bariatric surgery status Category: Surgical (2) Obesity: Code(s): E66.9 - Obesity, unspecified Category: Medical Plan Pt will continue to send weekly measurements to Dr Senior. Continue current meal plan, due to check in tmrw. Goal exercise 2000 mark/week. Cleared for all activity. Refilled carafate for 1 more month. RTC 1 month. I spent a total of 30 minutes reviewing/updating records, examining the patient and counseling the patient on weight management as detailed above. Medications: Refilled sucralfate 10 mL PO BID 600 mL 0RF K21.9 - Gastro-esophageal reflux disease without esophagitis
[2024-02-17 11:04] VITALS: BP 136/79; PULSE 81; TEMP 35.8; O2SAT 93; BMI 34.3
== END 2024-02-17 11:29 | disposition home or self-care (01) ==
PROVIDERS: PCP Family Medicine; Visit Provider Physician Assistant Surgical
DX: E66.9 Obesity, unspecified (principal); Z68.34 Body mass index [BMI] 34.0-34.9, adult; Z98.84 Bariatric surgery status
CPT/HCPCS: 99024

== ENCOUNTER → 2024-02-17 10:55 | Outpatient (BNVA) | payer OTHER, SELFPAY | PROVIDERS: PCP Family Medicine; Visit Provider Physician Assistant Surgical ==

== ENCOUNTER 2024-03-16 09:59 | Outpatient (AMB) | payer OTHER, SELFPAY ==
--- NOTE | 2024-03-16 13:02 | A.OFFVIS_ITS ---
VS Expanded 03/16/24 13:04 Height 5 ft 5 in Weight 203 lb 6 oz BMI 33.8 Intake Visit Reasons: TELEPHONE PO LSG 04/21/23 Allergies ibuprofen Adverse Reaction (Severe, Verified 02/17/24 10:58) dehydrated, delirious, went to ED Medication List - Last Reconciled 03/16/24 by FRANK Rascon albuterol sulfate 90 mcg/actuation (Ventolin HFA) 1 inh inhalation QID PRN 30 days cetirizine (Zyrtec) 10 mg PO DAILY PRN fluticasone propionate 110 mcg/actuation 1 puff inhalation BID PRN HPI Comments Details: This?is a?33?yo female who is s/p LSG 12/10/2023. Presents for 3 month post op visit. Weight at last visit on 02/17/2024 was 206 pounds with a BMI of 34.3, weight today is 203.6 pounds, representing a 2.4 pound weight loss with a BMI today of 33.8.? No complaints of nausea, emesis, abdominal pain or reflux, or constipation. Reports hair loss, started vit D. Present meal plan includes: 1.5 Premier shakes mixed with oat milk 1 bar MVI- Celebrate doesn't feel hungry often, sometimes does not finish bar Exercise routine includes: difficulty with exercise for 2 weeks due to work stress [facility] Medical History (Updated 12/19/23 @ 00:02 by Rajan Prather) Pre-op evaluation Morbid obesity Chest pain Family history of anesthesia complication Slow to wake up after anesthesia Seasonal allergies Asthma GERD (gastroesophageal reflux disease) Knee pain Anxiety Depression Sleep apnea Surgical History Hx of laparoscopic partial gastrectomy Hx of colonoscopy History of wisdom tooth extraction History of sinus surgery Family History Paternal Grandfather Anesthesia complication Social History Household Members: Family Housing: House Are you a primary manager long term care to a significant other at home: No Do you presently have visiting nurse or other home services: No 75 years or older and lives alone: No Alcohol intake: never Comment: aware of trip hazard Patient Tobacco Use Status: Never used Tobacco service: No Current occupational status: employed Telehealth Telehealth Telehealth Platform: Telephone Location of provider rendering services: other Location of patient: address on file Patient Identification confirmed using: Name, : Yes Telehealth method: voice only Patient verbally consented to treatment: Yes Patient verbally consented to billing insurance company: Yes Patient informed of any privacy concerns related to visit: Yes Minutes spent on Phone/Video with Pt.: 15 Assessment & Plan Assessment & Plan (1) S/P laparoscopic sleeve gastrectomy: Code(s): Z98.84 - Bariatric surgery status Category: Surgical (2) Obesity: Code(s): E66.9 - Obesity, unspecified Category: Medical Plan Will continue to text Dr. Senior weekly with measurements. Discussed the importance of getting the appropriate amount of protein each day to promote weight loss. Ok to take biotin if she wants. Completed PPI/carafate. RTC 6 weeks. I spent a total of 30 minutes reviewing/updating records, examining the patient and counseling the patient on weight management as detailed above.
[2024-03-16 13:04] VITALS: BMI 33.8
== END 2024-03-16 13:34 | disposition home or self-care (01) ==
LOC: HO.HBS 09:59
PROVIDERS: PCP Family Medicine; Visit Provider Physician Assistant Surgical
DX: E66.9 Obesity, unspecified (principal); Z68.33 Body mass index [BMI] 33.0-33.9, adult; Z98.84 Bariatric surgery status
CPT/HCPCS: 99214; G2211

== ENCOUNTER → 2024-03-16 09:59 | Outpatient (BNVA) | payer OTHER, SELFPAY | PROVIDERS: PCP Family Medicine; Visit Provider Physician Assistant Surgical ==

== ENCOUNTER → 2024-04-28 13:31 | Outpatient (BNVA) | payer OTHER, SELFPAY | PROVIDERS: PCP Family Medicine; Visit Provider Physician Assistant Surgical ==

== ENCOUNTER 2024-05-31 14:02 | Outpatient (AMB) | payer OTHER, SELFPAY ==
--- NOTE | 2024-05-31 13:53 | A.OFFVIS_ITS ---
VS Expanded 05/31/24 14:00 Height 5 ft 5 in Weight 187 lb 6 oz BMI 31.2 Intake Visit Reasons: TELEPHONE PO LSG 04/21/23 Allergies ibuprofen Adverse Reaction (Severe, Verified 02/17/24 10:58) dehydrated, delirious, went to ED Medication List - Last Reconciled 05/31/24 by FRANK Rascon albuterol sulfate 90 mcg/actuation (Ventolin HFA) 1 inh inhalation QID PRN 30 days cetirizine (Zyrtec) 10 mg PO DAILY PRN fluticasone propionate 110 mcg/actuation 1 puff inhalation BID PRN HPI Comments Details: This?is a?33?yo female who is s/p LSG 12/10/2023. Presents for 6 month post op visit. Weight at last visit on 04/28/2024 was 195.2 pounds with a BMI of 32.5, weight today is 187.6 pounds, representing a 7.6 pound weight loss with a BMI today of 31.2.? No complaints of nausea, emesis, abdominal pain or reflux, or constipation. Had her hormonal control changed from pill to patch by [facility]. PCOS has improved, but was also recently diagnosed with endometriosis. Present meal plan includes: 1.5 Premier shakes mixed with oat milk (3 shakes divided up) 1 bar 3f protein, 3f halie/cauli (4f was too much) MVI- Celebrate chewable getting adequate hydration Exercise routine includes: bike at home - 400-500 mark each time also has weights, pilates equipment [facility] Medical History (Updated 12/19/23 @ 00:02 by Rajan Prather) Pre-op evaluation Morbid obesity Chest pain Family history of anesthesia complication Slow to wake up after anesthesia Seasonal allergies Asthma GERD (gastroesophageal reflux disease) Knee pain Anxiety Depression Sleep apnea Surgical History Hx of laparoscopic partial gastrectomy Hx of colonoscopy History of wisdom tooth extraction History of sinus surgery Family History Paternal Grandfather Anesthesia complication Social History Household Members: Family Housing: House Are you a primary care companion to a significant other at home: No Do you presently have visiting nurse or other home services: No 75 years or older and lives alone: No Alcohol intake: never Comment: aware of trip hazard Patient Tobacco Use Status: Never used Tobacco service: No Current occupational status: employed Telehealth Telehealth Telehealth Platform: Telephone Location of provider rendering services: other Location of patient: address on file Patient Identification confirmed using: Name, : Yes Telehealth method: voice only Patient verbally consented to treatment: Yes Patient verbally consented to billing insurance company: Yes Patient informed of any privacy concerns related to visit: Yes Minutes spent on Phone/Video with Pt.: 15 Assessment & Plan Assessment & Plan (1) Obesity: Code(s): E66.9 - Obesity, unspecified Category: Medical (2) S/P laparoscopic sleeve gastrectomy: Code(s): Z98.84 - Bariatric surgery status Category: Surgical Plan Continue meal plan per Dr. Senior, exercise regimen. 6mo labs ordered. RTC 2-3 months. I spent a total of 30 minutes reviewing/updating records, examining the patient and counseling the patient on weight management as detailed above. Orders: Orders Insulin Today Z.84 - Bariatric surgery status Hemoglobin A1c Today Z.84 - Bariatric surgery status Comprehensive Met. Panel Today .84 - Bariatric surgery status C Reactive Protein Today Z.84 - Bariatric surgery status Vitamin B1 Today Z.84 - Bariatric surgery status Ferritin Today Z.84 - Bariatric surgery status Vitamin D 25-OH Total Today Z98.84 - Bariatric surgery status Complete Blood Count Auto Diff Today Z.84 - Bariatric surgery status Lipid Panel Today Z.84 - Bariatric surgery status IRON PROFILE Today Z.84 - Bariatric surgery status Vitamin B12 and Folate Today Z98.84 - Bariatric surgery status Zinc Today Z98.84 - Bariatric surgery status Vitamin A Today Z98.84 - Bariatric surgery status TSH reflex Free T4 Today Z98.84 - Bariatric surgery status
[2024-05-31 14:00] VITALS: BMI 31.2
== END 2024-05-31 14:12 | disposition home or self-care (01) ==
LOC: HO.HBS 14:02
PROVIDERS: PCP Family Medicine; Visit Provider Physician Assistant Surgical
DX: E66.9 Obesity, unspecified (principal); E66.811 Obesity, class 1; Z68.31 Body mass index [BMI] 31.0-31.9, adult; Z98.84 Bariatric surgery status
CPT/HCPCS: 99214; G2211

== ENCOUNTER → 2024-05-31 14:02 | Outpatient (BNVA) | payer OTHER, SELFPAY | PROVIDERS: PCP Family Medicine; Visit Provider Physician Assistant Surgical ==

== ENCOUNTER 2024-06-04 08:45 | Outpatient (REF) | payer OTHER, SELFPAY ==
[2024-06-04 08:59] LABS: MANUAL DIFF FLAG NO
[2024-06-04 09:24] LABS: Basophils Percent Auto 0.6 % (0-2); Eosinophils Absolute Auto 0.2 X10*3/uL (0.0-0.4); Eosinophils Percent Auto 2.6 % (0-4); Hematocrit 35.5 % (37.0-47.0); Hemoglobin 12.3 g/dl (12.0-16.0); Imm Gran Abs Auto 0.02 X10*3/uL (0.00-0.03); Imm Gran Pct Auto 0.3 % (0.0-0.4); Lymphocytes Absolute Auto 1.9 X10*3/uL (1.2-4.9); Lymphocytes Percent Auto 30.5 % (20-40); Mean Corpuscular HGB Conc 34.6 g/dl (31.0-35.0); Mean Corpuscular Hemoglobin 31.3 pg (27.0-33.0); Mean Corpuscular Volume 90.3 fL (80.0-98.0); Monocytes Absolute Auto 0.3 X10*3/uL (0.1-1.2); Monocytes Percent Auto 5.3 % (2-11); Neutrophils Absolute Auto 3.8 x10*3/uL (2.0-8.3); Neutrophils Percent Auto 60.7 % (45-73); Platelet Count 168 X10*3/uL (160-400); Red Blood Count 3.93 X10*6/uL (4.20-5.50); Red Cell Distribution Width 12.1 % (11.0-16.0); White Blood Count 6.2 X10*3/uL (4.8-10.8)
[2024-06-04 09:38] LABS: Estimated Average Glucose 100 mg/dL; Hemoglobin A1C 104.0814 umol/L; Hemoglobin A1c % 5.1 % (<6.0); Total Hemoglobin (HGBA1C) 3178.0498 umol/L
[2024-06-04 10:06] LABS: Anion Gap 11 (12-20)
[2024-06-04 10:16] LABS: Alanine Aminotransferase 14 U/L (0-31); Alkaline Phosphatase 49 U/L (39-117); Aspartate Amino Transferase 13 U/L (5-31); Blood Urea Nitrogen 18 mg/dL (9-16); C Reactive Protein 0.67 mg/dL (< or = 0.50); Carbon Dioxide 25 mmol/L (22-29); Chloride 108 mmol/L (96-108); Cholesterol 136 mg/dL (<200); Estimated Glomerular Filt Rate > 60; Glucose Random 91 mg/dL (60-115); HDL Cholesterol 53 mg/dL (>40); Iron 217 mcg/dL (30-160); LDL Cholesterol Calculated 70 mg/dL (<100); Percent Iron Saturation 73 % (15-50); Potassium 3.9 mmol/L (3.3-5.1); Sodium 140 mmol/L (135-145); Total Iron Binding Capacity 296 mcg/dL (228-428); Total Protein 6.6 g/dL (6.5-8.0); Triglycerides 65 mg/dL (<150); Unsaturated Iron Binding 79 ug/dL
[2024-06-04 10:34] LABS: Ferritin 55 ng/mL (10-122); TSH reflex Free T4 1.23 uIU/mL (0.32-4.0); Vitamin D 25-OH Total 44.9 ng/mL (>30)
[2024-06-04 10:44] LABS: Folate 16.3 ng/mL (> or = 4.0); Vitamin B12 624 pg/mL (200-900)
[2024-06-04 14:06] LABS: Insulin 6 uU/mL (2-29)
[2024-06-09 18:44] LABS: Vitamin A 50 mcg/dL (38-98)
[2024-06-11 07:47] LABS: Vitamin B1 14 nmol/L (8-30)
[2024-06-13 05:38] LABS: Zinc 78 mcg/dL (60-130)
== END 2024-06-04 08:46 | disposition home or self-care (01) ==
LOC: HO.LAB 08:45
PROVIDERS: PCP Family Medicine; Visit Provider Physician Assistant Surgical
DX: Z98.84 Bariatric surgery status (principal); Z13.1 Encounter for screening for diabetes mellitus
CPT/HCPCS: 36415; 80053; 80061; 82306; 82607; 82728; 82746; 83036; 83525; 83540; 84425; 84443; 84590; 84630; 85025; 86140